=== PATIENT | female | born 1985 | race African-American/Black ===

== ENCOUNTER 2016-04-02 03:04 | Inpatient (IN) | payer OTHER ==
[~2016-04-02] VITALS: Ht 175.3 cm; Wt 85.9 kg
[2016-04-02 03:08] VITALS: BP 117/75; PULSE 100; RESP 18; TEMP 97.7; O2SAT 98
--- NOTE | 2016-04-02 03:12 | PD ---
HPI Chief Complaint: psychiatric evaluation Time Seen by Provider: 03:10 Travel History International Travel<30 days: No Contact w/Intl Traveler<30days: No History of Present Illness HPI Patient comes in under a [place] act by police. Patient states that she smoked flakka along with marijuana and drank bottle of absolute. Patient states the police took the rest of her marijuana and she is requesting something to eat. Patient denies any medical complaints or concerns at this time. Denies any chest pain, shortness of breath, abdominal pain, fevers, or headaches. Patient states she just wanting to sleep right now and then she will talk more. PFSH Past Medical History Blood Disorders: No Cancer: No Cardiovascular Problems: No Diminished Hearing: No Endocrine: No Genitourinary: No Immune Disorder: No Musculoskeletal: No Neurologic: No Psychiatric: No Reproductive: No Respiratory: No Immunizations Current: Yes Past Surgical History Other Surgery: No Social History Alcohol Use: Yes Tobacco Use: Yes Substance Use: Yes Allergies-Medications (Allergen,Severity, Reaction): Coded Allergies: No Known Allergies (Verified , 04/02/16) Reported Meds & Prescriptions Reported Meds & Active Scripts Active No Active Prescriptions or Reported Medications Review of Systems Except as stated in HPI: all other systems reviewed are Neg Physical Exam Narrative GENERAL: Well-developed, overly nourished, in no acute distress, and non-ill appearing. SKIN: Warm and dry. HEAD: Atraumatic. Normocephalic. EYES: Pupils equal and round. EOMI. No scleral icterus. No injection or drainage. ENT: No nasal bleeding or discharge. Mucous membranes pink and moist. NECK: Trachea midline. Supple. No nuclear rigidity. CARDIOVASCULAR: Regular rate and rhythm. No murmur appreciated. RESPIRATORY: No accessory muscle use. No respiratory distress. Clear to auscultation. Breath sounds equal bilaterally. MUSCULOSKELETAL: No obvious deformities. No clubbing. No cyanosis. No edema. Full range of motion. NEUROLOGICAL: Awake and alert. No obvious cranial nerve deficits. Motor grossly within normal limits. Normal speech. Data Data Last Documented VS Vital Signs Date Time Temp Pulse Resp B/P Pulse Ox O2 Delivery O2 Flow Rate FiO2 04/02/16 03:08 97.7 100 18 117/75 98 Orders Complete Blood Count With Diff (04/02/16 03:10) Comprehensive Metabolic Panel (04/02/16 03:10) Drug Screen, Random Urine (04/02/16 03:10) Ed Urine Pregnancytest Poc (04/02/16 03:10) Alcohol (Ethanol) (04/02/16 03:10) Salicylates (Aspirin) (04/02/16 03:10) Tylenol (Acetaminophen) (04/02/16 03:10) Psych Screen (04/02/16 03:10) Haloperidol Inj (Haldol Inj) (04/02/16 03:15) Lorazepam Inj (Ativan Inj) (04/02/16 03:15) Diphenhydramine Inj (Benadryl Inj) (04/02/16 03:15) Restraints Violent (04/02/16 03:17) Labs Laboratory Tests Test 04/02/16 03:25 White Blood Count 12.0 TH/MM3 Red Blood Count 4.10 MIL/MM3 Hemoglobin 10.5 GM/DL Hematocrit 33.7 % Mean Corpuscular Volume 82.1 FL Mean Corpuscular Hemoglobin 25.5 PG Mean Corpuscular Hemoglobin 31.1 % Concent Red Cell Distribution Width 19.3 % Platelet Count 310 TH/MM3 Mean Platelet Volume 10.2 FL Neutrophils (%) (Auto) 47.1 % Lymphocytes (%) (Auto) 39.4 % Monocytes (%) (Auto) 11.0 % Eosinophils (%) (Auto) 1.8 % Basophils (%) (Auto) 0.7 % Neutrophils # (Auto) 5.7 TH/MM3 Lymphocytes # (Auto) 4.7 TH/MM3 Monocytes # (Auto) 1.3 TH/MM3 Eosinophils # (Auto) 0.2 TH/MM3 Basophils # (Auto) 0.1 TH/MM3 CBC Comment DIFF FINAL Differential Comment Sodium Level 139 MEQ/L Potassium Level 3.6 MEQ/L Chloride Level 107 MEQ/L Carbon Dioxide Level 17.5 MEQ/L Anion Gap 15 MEQ/L Blood Urea Nitrogen 20 MG/DL Creatinine 1.30 MG/DL Estimat Glomerular Filtration 59 ML/MIN Rate Random Glucose 94 MG/DL Calcium Level 9.1 MG/DL Total Bilirubin 0.8 MG/DL Aspartate Amino Transf 26 U/L (AST/SGOT) Alanine Aminotransferase 21 U/L (ALT/SGPT) Alkaline Phosphatase 79 U/L Total Protein 8.0 GM/DL Albumin 3.8 GM/DL Salicylates Level LESS THAN 1.7 MG/DL Acetaminophen Level LESS THAN 2.0 MCG/ML Ethyl Alcohol Level LESS THAN 3 MG/DL MDM Medical Decision Making Medical Screen Exam Complete: Yes Emergency Medical Condition: Yes Differential Diagnosis Substance abuse, electrolyte abnormality, alcohol intoxication, other Narrative Course After initial evaluation of the patient. Patient was noted be in the hallway yelling and cursing at staff, spitting on staff, and trying to kick staff. Patient was restrained for safety of staff and the patient herself. Patient was seen and examined. Labs were obtained and reviewed with the exception of urine drug screen. Patient medically cleared for further treatment and evaluation by psych. Final disposition per psych. Diagnosis Primary Impression: Substance abuse Scripts No Active Prescriptions or Reported Meds Condition: Paul Sheehan Apr 02, 2016 03:12
[2016-04-02] MEDS ORDERED: HALOPERIDOL LACTATE 5 MG/ML AMP IM ONE (03:15)
[2016-04-02] MEDS ORDERED: diphenhydrAMINE HCL 50 MG/ML VIAL IM ONE (03:15)
[2016-04-02] MEDS ORDERED: LORazepam 2 MG/ML VIAL IM ONE (03:15)
[2016-04-02 03:44] LABS: AUTOMATED NEUTROPHIL # 5.7 TH/MM3 (1.8-7.7); BASOPHIL # 0.1 TH/MM3 (0-0.2); BASOPHIL % 0.7 % (0.0-2.0); EOSINOPHIL # 0.2 TH/MM3 (0-0.4); EOSINOPHIL % 1.8 % (0.0-4.0); HEMATOCRIT 33.7 % (35.0-46.0); HEMO FLAGS DIFF FINAL; LYMPH % 39.4 % (9.0-44.0); LYMPHOCYTE # 4.7 TH/MM3 (1.0-4.8); MEAN CELL VOLUME 82.1 FL (80.0-100.0); MEAN CORPUSCULAR HEMOGLOBIN 25.5 PG (27.0-34.0); MEAN CORPUSCULAR HGB CONC 31.1 % (32.0-36.0); NEUT % 47.1 % (16.0-70.0); PLATELET COUNT 310 TH/MM3 (150-450); RED CELL DISTRIBUTION WIDTH 19.3 % (11.6-17.2)
[2016-04-02 04:00] LABS: ALKALINE PHOSPHATASE 79 U/L (45-117); TOTAL BILIRUBIN ADULT 0.8 MG/DL (0.2-1.0)
[2016-04-02 04:03] LABS: ALT (GPT) 21 U/L (10-53); ANION GAP 15 MEQ/L (5-15); AST (GOT) 26 U/L (15-37); BICARBONATE 17.5 MEQ/L (21.0-32.0); BLOOD UREA NITROGEN 20 MG/DL (7-18); CHLORIDE 107 MEQ/L (98-107); GLOMERULAR FILTRATION RATE 59 ML/MIN (>89); POTASSIUM 3.6 MEQ/L (3.5-5.1); SODIUM (NA) 139 MEQ/L (136-145)
[2016-04-02 04:05] LABS: ACETAMINOPHEN LESS THAN 2.0 MCG/ML (10.0-30.0)
[2016-04-02 08:08] VITALS: BP 120/76; PULSE 88; RESP 16; O2SAT 100
[2016-04-02 11:17] LABS: AMPHETAMINE, URINE NEG (NEG); BARBITURATES, URINE NEG (NEG); COCAINE, URINE NEG (NEG)
[2016-04-02 11:35] VITALS: BP 109/71; PULSE 76; RESP 20; O2SAT 100
[2016-04-02 12:54] VITALS: BP 110/72; PULSE 90; RESP 18; TEMP 98.5; O2SAT 100
[2016-04-02 17:58] VITALS: BP 125/65; PULSE 77; RESP 18; O2SAT 97
[2016-04-02 22:23] VITALS: BP 129/67; PULSE 80; RESP 19; O2SAT 99
[2016-04-03 03:02] VITALS: BP 115/60; PULSE 88; RESP 18; TEMP 97.6; O2SAT 99
[2016-04-03 06:11] VITALS: BP 120/71; PULSE 91; RESP 17
[2016-04-03] MEDS: QUEtiapine FUMARATE 25 MG TAB PO SCH ×2 (09:06→21:23)
--- NOTE | 2016-04-03 09:09 | HHI.HP ---
Provisional Diagnosis Admission Date Apr 03, 2016 at 09:06 [place] I. 1. Polysubstance dependence with associated mood disorder [place] II. Deferred [place] V. GAF is 40 presently Certification of Person's Competence To Provide Express and Informed Consent I have personally examined Bettina Burks , a person being served at [facility] on, Apr 03, 2016 09:09. Express and informed consent means consent voluntarily given in writing, by a competent person, after sufficient explanation and disclosure of the subject matter involved to enable the person to make a knowing and willful decision without any element of force, fraud, deceit, duress, or other form of constraint or coercion. This person is 18 years of age or older, is not now known to be incompetent to consent to treatment with a guardian advocate, and does not have a health care surrogate or proxy currently making medical treatment decisions. I have found this person to be one of the following: [x] Competent to provide express and informed consent, as defined above, for voluntary admission to this facility and is competent to provide express and informed consent for treatment. He/she has the consistent capacity to make well reasoned, willful, and knowing decisions concerning his or her medical or mental health treatment. The person fully and consistently understands the purpose of the admission for examination/placement and is fully capable of personally exercising all rights assured [place] Incompetent to provide express and informed consent to voluntary admission, and this is incompetent to provide express and informed consent to treatment. The person must be transferred to involuntary status and a petition for a guardian advocate filed with the Circuit Court. [] Refusing to provide express and informed consent to voluntary admission but is competent to provide express and informed consent for treatment. The person must be discharged or transferred to involuntary status. Form shall be completed within 24 hours of a person's arrival at the receiving facility and filed in the clinical record of each person: 1. Admitted on a voluntary basis 2. Permitted to provide express and informed consent to his/her own treatment 3. Allowed to transfer from involuntary to voluntary status 4. Prior to permitting a person to consent to his or her own treatment after having been previously found incompetent to consent to treatment. History of Present Illness Capacity: Has Capacity HPI Ms. Burks is a 30-year-old female with a reported history of schizophrenia who presents on a [place] act by [place] [employer] alleging suicidal threats. Patient's toxicology was positive for cannabinoids on arrival here although the patient additionally admits to use of flakka and cocaine as well as alcohol. Reviewing the electronic medical record, I note that nurse practitioner Fan saw the patient exactly a week ago with a similar presentation and suspected malingering at that time. Patient seen and examined. Chart reviewed. Case discussed with nurse in the J- pod. On my examination today, the patient presents as dysphoric but not really depressed. She is an extremely vague historian. She says that she still feels "the same way" as she did when she was [place]ta acted. She says "I'm sick and tired of everything." She endorses vague ongoing suicidal ideation without specific plan or intent. No reported urge to hurt herself in the ED her on the inpatient psychiatric unit. She cannot generate any reason to live. She describes very vague auditory hallucinations and only when pressed will she say that they are command in nature and are saying "do it. Do it." She does not appear internally stimulated. She says that she has been sleeping and eating okay. She does appear to be experiencing some formication, possibly related to her recent substance use. The remainder of the psychiatric ROS is negative. Past psychiatric history: Patient reports prior diagnoses as noted above. She says that she follows with a mental health provider and Janina but cannot recall the name. She cannot recall whether she has a history of psychiatric admissions. She does say that she has previously tried to cut her wrists and also tried to hang herself in half-way. Family history: Patient reports that there is some family history of mental illness, although she cannot be specific. She also knows that her aunt and mother both have substance use issues. She cannot recall whether there is a history of suicide in the family. Chemical dependency history: Patient reports that she has been regularly using flakka and cannabis. Her use of cocaine as somewhat more sporadic, last a few days ago. She maintains that she drinks alcohol daily although her alcohol level on presentation here was negative. She does not report any history of DTs or seizures. Social history: Patient reports that she is without stable housing. She says that she could stay with her mother if she were clean and sober but she is not and so she cannot stay with her. She has a 5-month-old, 9-year-old and 11-year- old child, none of whom are in her custody. She reports a history of intermediate related to drug charges but denies any violent crime. She denies any history. She has a 10th grade education. She is single. Review of Systems ROS Limitations: Poor Historian Other Complains of some right thigh pain. She thinks that she may have left "a needle " in the thigh. Past Psych History Psychological trauma history No reported trauma history. Violence risk - others (6 mos) Low imminent risk Violence risk - self (6 mos) Indeterminate. Suspect lower imminent risk. Substance Abuse History Drugs/Alcohol past 12 months See above Past Family Social History Coded Allergies: No Known Allergies (Verified , 04/02/16) Past Medical History See electronic medical record. Patient denies any medical issues. Discontinued Reported Medications Penicillin V Potassium (Penicillin Vk)250 Mg [id number] Mg PO QID Ref 0 03/28/16 Menthol Lozenge (Cepacol Regular Strength Lozenge)3 Mg Lozg1 Lozenge PO Q3H PRN (SORE THROAT) #1 BOX Ref 0 03/28/16 Miscellaneous (No Current Meds) Misc 12/22/09 Discontinued Scripts Cepacol Maximu1 Lozg 1 Lozg Loz1 Lozg PO Q4HPRN #20 Prov:DANII ESPINALO. 06/29/11 Penicillin V Potassium (Pen Vk)500 Mg Sse155 Mg PO QID #40 Prov:DANII ESPINALOWayne 06/29/11 Family History See above Social History See above Patient's Strengths (min. 2) Maintaining basic hygiene. Verbally fluent. Physical Exam Physical examination completed in the ED by the ED provider. On my exam, patient is well-nourished and well-developed. She appears to be in no acute physical distress. No motoric abnormalities noted. No signs of withdrawal noted. Labs and vital signs reviewed. Vital Signs Vital Signs Date Time Temp Pulse Resp B/P Pulse Ox O2 Delivery O2 Flow Rate FiO2 04/03/16 06:11 91 17 120/71 Room Air 04/03/16 03:02 97.6 99 Lab Results Item Value Date Time White Blood Count 12.0 TH/MM3 H 1/2/17 0325 Hemoglobin 10.5 GM/DL L 04/02/16 0325 Platelet Count 310 TH/MM3 04/02/16 0325 Sodium Level 139 MEQ/L 04/02/16 0325 Potassium Level 3.6 MEQ/L 04/02/16 0325 Chloride Level 107 MEQ/L 04/02/16 0325 Carbon Dioxide Level 17.5 MEQ/L L 04/02/16 0325 Blood Urea Nitrogen 20 MG/DL H 04/02/16 0325 Creatinine 1.30 MG/DL H 04/02/16 0325 Aspartate Amino Transf (AST/SGOT) 26 U/L 04/02/16 0325 Alkaline Phosphatase 79 U/L 04/02/16 0325 Alanine Aminotransferase (ALT/SGPT) 21 U/L 04/02/16 0325 Urine Cannabinoids Screen POS H 04/02/16 1050 Ethyl Alcohol Level LESS THAN 3 MG/DL 04/02/16 0325 Emergency Department [id number] test was negative. Mental Status Examination Patient is in hospital gown. She is somewhat disheveled but maintaining basic hygiene. She is awake and alert and oriented 3. No abnormal motor movements noted. Speech is within normal limits for rate, tone and volume. Language and fund of knowledge seem adequate and appropriate for age. Mood is dysphoric but not really depressed and affect is restricted and consistent with stated mood. Thought process linear. No loosening of associations. No evident delusions. Reports vague auditory hallucinations as detailed above, possibly command. No visual hallucinations or other hallucinatory material. Reports ongoing vague suicidal ideation without specific plan or intent. No reported urge to hurt herself on the inpatient psychiatric unit. No homicidal ideation. Insight and judgment are fair. Assessment & Plan Problem List: (1) Other psychoactive substance dependence with psychoactive substance-induced mood disorder ICD Code: F19.24 Assessment & Plan This is a 30-year-old female with psychiatric history as detailed above who presents under a [place] act alleging that she was threatening to injure herself. Patient had a similar presentation about a week ago and was felt to be malingering. On my examination today, patient presents as a very vague historian. She does endorse some ongoing suicidal ideation. I suspect that the patient is exaggerating if not outright malingering her symptoms, likely with the same motivation is last time, but it is possible that she is also experiencing a drug-induced mood disorder given her comorbid substance use issues. I will plan to admit the patient briefly to the inpatient psychiatric unit for safety, observation and stabilization if necessary. --Admit inpatient --Voluntary status --Consult the hospitalist for patient's complaints of thigh pain. Patient also has decreased GFR and leukocytosis. Check a UA and recheck basic labs in the am. --Start Seroquel 25mg BID for mood d/o --CIWA with Ativan for withdrawal --Hydroxyzine for anxiety. Cogentin as needed for EPS. Benadryl as needed for sleep. --Vitals every shift --Counselor to see --Disposition planning --Estimated length of stay: 3-5 days Discharge Planning Pending outcome of observation Request HC Surrog/Guard Advoc?: No Aayush Vo MD Apr 03, 2016 09:09
[2016-04-03] MEDS ORDERED: hydrOXYzine HCL 50 MG TAB PO PRN (09:15)
[2016-04-03] MEDS ORDERED: MAGNESIUM HYDROXIDE SUSP 30 ML CUP PO PRN (09:15)
[2016-04-03] MEDS ORDERED: LORazepam 2 MG TAB PO PRN (09:15)
[2016-04-03] MEDS ORDERED: LORazepam 2 MG/ML VIAL IM PRN ×4 (09:15)
[2016-04-03] MEDS ORDERED: FLUMAZENIL 1 MG/10 ML VIAL IV PUSH PRN (09:15)
[2016-04-03] MEDS ORDERED: ACETAMINOPHEN 325 MG TAB PO PRN (09:15)
[2016-04-03] MEDS ORDERED: LORazepam 1 MG TAB PO PRN (09:15)
[2016-04-03] MEDS ORDERED: diphenhydrAMINE HCL 50 MG CAP PO PRN (09:15)
[2016-04-03] MEDS ORDERED: BENZTROPINE MESYLATE 2 MG/2 ML VIAL IM PRN (09:15)
[2016-04-03] MEDS ORDERED: BENZTROPINE MESYLATE 1 MG TAB PO PRN (09:15)
[2016-04-03] MEDS ORDERED: ALUMINUM/MAGNESIUM/SIMETH 30 ML CUP PO PRN (09:15)
[2016-04-03 10:35] VITALS: BP 120/71
[2016-04-03 10:50] VITALS: BP 102/78; PULSE 84; RESP 18; TEMP 97.8; O2SAT 97
--- NOTE | 2016-04-03 16:55 | PD.CONS ---
[facility]ry [facility] Primary Care Physician No Primary Care Physician Diagnoses: (1) Substance abuse (2) Substance-induced psychotic disorder with hallucinations History of Present Illness Patient is a 30-year-old AF female who came in under [place] act by police. Patient stating she smoked Flacka, along with marijuana and drank a bottle of absolute. She is now admitted to inpatient psychiatry unit for further evaluation. Consulted for medical management of right thigh pain, leukocytosis , GEO. Patient seen today. States that she is having pain on the right hip area secondary to 3 injection shots that she received in the ED because she was not behaving well. She also complained of brownish greenish vaginal discharge, strong odor, itching, also burning sensation when she urinates. Denies fevers, chills, nausea, vomiting, diarrhea, chest pain, palpitations, headaches, dizziness. Review of Systems Constitutional: DENIES: Fever, Chills, Change in appetite Endocrine: DENIES: Heat/cold intolerance Eyes: DENIES: Blurred vision, Eye pain Ears, nose, mouth, throat: DENIES: Nasal discharge Respiratory: DENIES: Cough, Hemoptysis, Sputum production, Shortness of breath Cardiovascular: DENIES: Chest pain, Palpitations, Dyspnea on Exertion, Lower Extremity Edema Gastrointestinal: DENIES: Abdominal pain, Constipation, Diarrhea, Nausea, Vomiting Genitourinary: COMPLAINS OF: Urgency, Dysuria, Vaginal discharge, DENIES: Urinary frequency Musculoskeletal: DENIES: Joint pain Integumentary: DENIES: Abnormal pigmentation Neurologic: DENIES: Abnormal gait, Poor Balance Past Family Social History Allergies: Coded Allergies: No Known Allergies (Verified , 04/02/16) Past Medical History No known medical history Past Surgical History 1, 6 months ago Reported Medications No report medications Active Ordered Medications Current Medications Medications (Trade) Dose Ordered Sig/Ren Route Start Time Stop Time Status Last Admin (Benadryl) 50 mg HS PRN PO 04/03/16 09:15 (Tylenol) 650 mg Q4H PRN PO 04/03/16 09:15 (Milk Of Magnesia Liq) 30 ml DAILY PRN PO 04/03/16 09:15 (Mag-Al Plus Susp Liq) 30 ml Q6H PRN PO 04/03/16 09:15 (Habitrol 21 Mg Patch.24 Hr) 1 patch DAILY T-DERMAL 04/04/16 09:00 (Atarax) 50 mg Q6H PRN PO 04/03/16 09:15 (Cogentin) 1 mg Q12H PRN PO 04/03/16 09:15 (Cogentin Inj) 1 mg Q12H PRN IM 04/03/16 09:15 (Ativan) 1 mg Q4H PRN PO 04/03/16 09:15 (Ativan Inj) 1 mg Q4H PRN IM 04/03/16 09:15 (Ativan) 2 mg Q2H PRN PO 04/03/16 09:15 (Ativan Inj) 2 mg Q2H PRN IM 04/03/16 09:15 (Ativan Inj) 2 mg Q1H PRN IM 04/03/16 09:15 (Ativan Inj) 2 mg Q15M PRN IM 04/03/16 09:15 Miscellaneous Information 1 DAILY T-DERMAL 04/04/16 09:00 (SEROquel) 25 mg BID PO 04/03/16 09:06 Family History Father side of the family diabetes Social History Current smoker half a pack a day Daily alcohol use tequila Illicit drug use includes marijuana Physical Exam Vital Signs Vital Signs Date Time Temp Pulse Resp B/P Pulse Ox O2 Delivery O2 Flow Rate FiO2 04/03/16 10:50 97.8 84 18 102/78 97 04/03/16 10:35 120/71 04/03/16 06:11 91 17 120/71 Room Air 04/03/16 03:02 97.6 88 18 115/60 99 Room Air 04/02/16 22:23 80 19 129/67 99 Room Air 04/02/16 17:58 77 18 125/65 97 Room Air Physical Exam GENERAL: This is a well-nourished, well-developed patient, in no apparent distress. SKIN: No rashes, ecchymoses or lesions. Cool and dry. HEAD: Atraumatic. Normocephalic. No temporal or scalp tenderness. EYES: Pupils equal round and reactive. Extraocular motions intact. No scleral icterus. No injection or drainage. ENT: Nose without bleeding. Throat without erythema. Uvula midline. Airway patent. NECK: Trachea midline. No JVD or lymphadenopathy. Supple, nontender, no meningeal signs. CARDIOVASCULAR: Regular rate and rhythm without murmurs, gallops, or rubs. RESPIRATORY: Clear to auscultation. Breath sounds equal bilaterally. No wheezes , rales, or rhonchi. GASTROINTESTINAL: Abdomen soft, non-tender, nondistended. No CVA tenderness. I 'll sounds active 4 MUSCULOSKELETAL: Extremities without clubbing, cyanosis, or edema. No joint tenderness, effusion, or edema noted. NEUROLOGICAL: Awake and alert. Cranial nerves II through XII intact. Motor and sensory grossly within normal limits. Five out of 5 muscle strength in all muscle groups. Normal speech. Result Diagram: 04/02/1632404/02/16324 Assessment and Plan Problem List: (1) Substance abuse ICD Code: F19.10 Status: Acute (2) UTI symptoms ICD Code: R39.9 Status: Acute (3) Acute kidney injury ICD Code: N17.9 Status: Acute (4) Vagina itching ICD Code: L29.8 Status: Acute (5) Leukocytosis ICD Code: D72.829 Status: Acute Assessment and Plan Patient is a 30-year-old AF female who came in under [place] act by police. Patient stating she smoked Flock, along with marijuana and drank a bottle of absolute. She is now admitted to inpatient psychiatry unit for further evaluation. Consulted for medical management. Substance abuse and mood disorder - managed by psychiatric team Right thigh pain - ice on and off for now. Pain secondary to injections of Haldol, Benadryl, Ativan in the ED. Treatment discussed with patient. Monitor. Leukocytosis, UTI symptoms, vaginal itching/ discharge- UA to be collected. - Monistat intravaginally - Repeat CBC Acute kidney injury - BUN 20/ creatinine 1.30. Baseline creatinine around 0.67 to 0.72 - Avoid nephrotoxins - Encourage by mouth fluid intake - Monitor BMP Tobacco use - counseled. Declines nicotine patch use Alcohol use - counseled. Thank you for this consultation. We will follow patient with you. Written by July Sanchez, acting as scribe for Dr. Joe on 04/03/16 at 16: 05. The documentation accurately reflects the work performed [id number] by me on 04/03/16 at 16:05. Code Status Full code Discussed Condition With Patient, nursing July Khan Apr 03, 2016 16:55 Ricky Joe MD Apr 03, 2016 17:19
[2016-04-03 18:00] VITALS: BP 120/68; PULSE 89; RESP 18; TEMP 97.8; O2SAT 97
[2016-04-03] MEDS ORDERED: MICONAZOLE NITRATE 200 MG VAG SUPP VAGINAL SCH (21:00)
[2016-04-04 05:51] VITALS: BP 123/74; PULSE 80; RESP 18; TEMP 98.5; O2SAT 100
[2016-04-04 07:37] LABS: AUTOMATED NEUTROPHIL # 1.4 TH/MM3 (1.8-7.7); BASOPHIL % 0.7 % (0.0-2.0); EOSINOPHIL # 0.3 TH/MM3 (0-0.4); EOSINOPHIL % 5.4 % (0.0-4.0); HEMATOCRIT 31.9 % (35.0-46.0); HEMO FLAGS DIFF FINAL; LYMPH % 56.5 % (9.0-44.0); LYMPHOCYTE # 3.1 TH/MM3 (1.0-4.8); MEAN CORPUSCULAR HEMOGLOBIN 26.4 PG (27.0-34.0); MEAN CORPUSCULAR HGB CONC 32.1 % (32.0-36.0); MONO % 11.7 % (0.0-8.0); NEUT % 25.7 % (16.0-70.0); PLATELET COUNT 256 TH/MM3 (150-450); RED BLOOD COUNT 3.89 MIL/MM3 (4.00-5.30); WHITE BLOOD COUNT 5.5 TH/MM3 (4.0-11.0)
[2016-04-04 07:55] LABS: ALT (GPT) 20 U/L (10-53); ANION GAP 8 MEQ/L (5-15); AST (GOT) 18 U/L (15-37); BICARBONATE 24.8 MEQ/L (21.0-32.0); BLOOD UREA NITROGEN 10 MG/DL (7-18); CHLORIDE 108 MEQ/L (98-107); GLOMERULAR FILTRATION RATE 119 ML/MIN (>89); POTASSIUM 3.7 MEQ/L (3.5-5.1); SODIUM (NA) 141 MEQ/L (136-145)
[2016-04-04 08:05] LABS: ALKALINE PHOSPHATASE 79 U/L (45-117); HDL CHOLESTEROL 74.3 MG/DL (40.0-60.0); LDL CHOLESTEROL 49 MG/DL (0-99); TOTAL BILIRUBIN ADULT 0.3 MG/DL (0.2-1.0)
[2016-04-04] MEDS ORDERED: NICOTINE 21 MG/24 HR PATCH T-DERMAL SCH (09:00)
[2016-04-04] MEDS ORDERED: REMOVE OLD PATCH T-DERMAL SCH (09:00)
[2016-04-04] MEDS: QUEtiapine FUMARATE 25 MG TAB PO SCH (09:15)
[2016-04-04] MEDS ORDERED: QUET1TAB7 PO (11:51)
--- NOTE | 2016-04-04 11:51 | HHI.DS ---
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 Burks is a 30-year-old female with a reported history of schizophrenia who presents on a Peralta act by [place] [employer] alleging suicidal threats. Patient's toxicology was positive for cannabinoids on arrival here although the patient additionally admits to use of flakka and cocaine as well as alcohol. Reviewing the electronic medical record, I note that nurse practitioner Fan saw the patient exactly a week ago with a similar presentation and suspected malingering at that time. Patient seen and examined. Chart reviewed. Case discussed with nurse in the J- pod. On my examination today, the patient presents as dysphoric but not really depressed. She is an extremely vague historian. She says that she still feels "the same way" as she did when she was Peralta acted. She says "I'm sick and tired of everything." She endorses vague ongoing suicidal ideation without specific plan or intent. No reported urge to hurt herself in the ED her on the inpatient psychiatric unit. She cannot generate any reason to live. She describes very vague auditory hallucinations and only when pressed will she say that they are command in nature and are saying "do it. Do it." She does not appear internally stimulated. She says that she has been sleeping and eating okay. She does appear to be experiencing some formication, possibly related to her recent substance use. The remainder of the psychiatric ROS is negative. Past psychiatric history: Patient reports prior diagnoses as noted above. She says that she follows with a mental health provider and Janina but cannot recall the name. She cannot recall whether she has a history of psychiatric admissions. She does say that she has previously tried to cut her wrists and also tried to hang herself in assisted. Family history: Patient reports that there is some family history of mental illness, although she cannot be specific. She also knows that her aunt and mother both have substance use issues. She cannot recall whether there is a history of suicide in the family. Chemical dependency history: Patient reports that she has been regularly using flakka and cannabis. Her use of cocaine as somewhat more sporadic, last a few days ago. She maintains that she drinks alcohol daily although her alcohol level on presentation here was negative. She does not report any history of DTs or seizures. Social history: Patient reports that she is without stable housing. She says that she could stay with her mother if she were clean and sober but she is not and so she cannot stay with her. She has a 5-month-old, 9-year-old and 11-year- old child, none of whom are in her custody. She reports a history of mcc related to drug charges but denies any violent crime. She denies any history. She has a 10th grade education. She is single. Tobacco Use In Past 30 Days: Refused To Answer Alcohol Use: 4 or More Times Per Week Hospital Course Patient was admitted to a locked, inpatient psychiatric unit. Appropriate precautions were in place throughout patient's hospital stay. Patient was seen and examined daily on the unit by psychiatry and also visited by counselor. Medications were adjusted. Patient tolerated medications well without side effects. There was no evidence of any suicidality or homicidality on the inpatient unit. Patient was noted to be quite difficult and demanding by nursing staff. For example, she rang the panic button in her room to get one of the techs to bring her a snack in bed. She is raising a great hue and cry because she didn't get the lunch that she wanted. On my examination today, the patient denies any SI, HI or AVH. She reports she slept somewhat better last night with Seroquel. She denies any side effects from medications. No physical complaints. Patient is fairly clearly malingering at this point with secondary gain of obtaining prison but I do rechecker that she is at low imminent risk of harm towards self or others from a mental illness after weighing the acute, chronic, and protective factors. Patient is at chronic risk related to her substance use, but she is unfortunately pre-contemplative with regards to changing her pattern of use. She has maximized benefit from this inpatient psychiatric hospital stay will be discharged today. Psychiatric follow-up as per counselor. Patient also to follow-up with primary care. Results Blood Pressure 123 / 74 Vital Signs Date Time Temp Pulse Resp B/P Pulse Ox O2 Delivery O2 Flow Rate FiO2 04/04/16 05:51 98.5 80 18 123/74 100 04/03/16 06:11 Room Air Laboratory Tests Test 04/02/16 04/02/16 04/04/16 03:25 10:50 06:54 White Blood Count 12.0 TH/MM3 (4.0-11.0) Hemoglobin 10.5 GM/DL 10.2 GM/DL (11.6-15.3) (11.6-15.3) Hematocrit 33.7 % 31.9 % (35.0-46.0) (35.0-46.0) Mean Corpuscular Hemoglobin 25.5 PG 26.4 PG (27.0-34.0) (27.0-34.0) Mean Corpuscular Hemoglobin 31.1 % Concent (32.0-36.0) Red Cell Distribution Width 19.3 % 19.0 % (11.6-17.2) (11.6-17.2) Monocytes (%) (Auto) 11.0 % 11.7 % (0.0-8.0) (0.0-8.0) Monocytes # (Auto) 1.3 TH/MM3 (0-0.9) Carbon Dioxide Level 17.5 MEQ/L (21.0-32.0) Blood Urea Nitrogen 20 MG/DL (7-18) Creatinine 1.30 MG/DL (0.50-1.00) Estimat Glomerular Filtration 59 ML/MIN (>89) Rate Salicylates Level LESS THAN 1.7 MG/DL (2.8-20.0) Acetaminophen Level LESS THAN 2.0 MCG/ML (10.0-30.0) Urine Cannabinoids Screen POS (NEG) Red Blood Count 3.89 MIL/MM3 (4.00-5.30) Lymphocytes (%) (Auto) 56.5 % (9.0-44.0) Eosinophils (%) (Auto) 5.4 % (0.0-4.0) Neutrophils # (Auto) 1.4 TH/MM3 (1.8-7.7) Chloride Level 108 MEQ/L (98-107) Albumin 3.2 GM/DL (3.4-5.0) HDL Cholesterol 74.3 MG/DL (40.0-60.0) Laboratory Results Test 1/4/17 06:54 Triglycerides Level 82 MG/DL (42-150) Cholesterol Level 140 MG/DL (120-200) LDL Cholesterol 49 MG/DL (0-99) HDL Cholesterol 74.3 MG/DL (40.0-60.0) Summary of Procedures None done Imaging None done Pending results at discharge: Yes Medications # of Antipsychotic meds at D/C: 1 Approp Antipsych med options 1 - Minimum of three failed multiple trials of monotherapy. 2 - Documented plan to taper to monotherapy due to previous use of multiple meds OR cross-taper in progress at D/C. 3 - Documentation of augmentation of Clozapine. 4 - Justification other than those listed in allowable values 1-3, document here : Discharge Discharge Date: Apr 04, 2016 Discharge Diagnosis: (1) Malingering Diagnosis: Principal ICD Code: Z76.5 (2) Polysubstance dependence Diagnosis: Secondary ICD Code: F19.20 Mental Status Exam at Disch Patient is in hospital gown. She is fairly well groomed. She is attending to basic hygiene. She is awake and alert and oriented 3. No abnormal motor movements noted. No signs of withdrawal noted. Speech is within normal limits for rate, tone and volume. Language and fund of knowledge seem adequate and appropriate for age. Mood is somewhat improved and affect is blunted. Thought process linear. No loosening of associations. No evident delusions. Denies audiovisual hallucinations. Denies suicidal or homicidal ideation. Insight and judgment are fair with respect to personal safety but likely poor with respect to substance use issues. 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 Aayush Vo at Smoking is Dangerous to Your Health. Avoid second hand smoking Aayush Vo MD Apr 04, 2016 11:51
[2016-04-04 16:30] LABS: HEMOGLOBIN A1a 1.2 %; HEMOGLOBIN A1b 0.7 %; HEMOGLOBIN Ao 86.2 %; HEMOGLOBIN F 0.8 %; HEMOGLOBIN LA1C 1.8 %; HEMOGLOBIN P3 3.4 %
== END 2016-04-04 13:21 | disposition home or self-care (01) | DRG 897 ==
LOC: NEPA 03:04 → NEDA 04-03 09:06 → H270 04-03 10:56
PROVIDERS: ADMIT Psychiatry & Neurology Psychiatry; ATTEND Psychiatry & Neurology Psychiatry
DX: F19.24 Other psychoactive substance dependence with psychoactive substance-induced mood disorder (principal); F10.10 Alcohol abuse, uncomplicated; N17.9 Acute kidney failure, unspecified; R45.851 Suicidal ideations; N39.0 Urinary tract infection, site not specified; M79.651 Pain in right thigh; D72.829 Elevated white blood cell count, unspecified; F20.9 Schizophrenia, unspecified; F41.9 Anxiety disorder, unspecified; F17.210 Nicotine dependence, cigarettes, uncomplicated; Y90.0 Blood alcohol level of less than 20 mg/100 ml; Z59.0 Homelessness; Z76.5 Malingerer [conscious simulation]; Z81.8 Family history of other mental and behavioral disorders
CPT/HCPCS: 80053; 80061; 80307; 80320; 80329; 83036; 84443; 84703; 85025; 86703; 96372; G0480; J1200; J1630; J2060

== ENCOUNTER 2016-04-06 18:14 | Emergency (ER) | payer MEDICAID, OTHER ==
[~2016-04-06] VITALS: Ht 172.7 cm; Wt 90.0 kg
[~2016-04-06 18:14] MED LIST: QUET1TAB7 PO
[2016-04-06] MEDS ORDERED: SODIUM CHLOR 0.9% 1000 ML INJ 1,000 ML IV ONE (18:30)
[2016-04-06] MEDS ORDERED: SODIUM CHLORIDE 0.9% FLUSH 5 ML FLUSH IVF PRN (18:30)
[2016-04-06] MEDS ORDERED: LORazepam 2 MG/ML VIAL IVP ONE (18:30)
[2016-04-06 18:32] VITALS: BP 117/78; PULSE 73; RESP 20; TEMP 96.9; O2SAT 99
--- NOTE | 2016-04-06 18:35 | PD ---
HPI Chief Complaint: Psychiatric Symptoms Time Seen by Provider: 18:30 Travel History International Travel<30 days: No Contact w/Intl Traveler<30days: No Traveled to known affect area: No History of Present Illness HPI The patient is a 30-year-old after Spanish female who presents to the emergency department via police and EMS as a Peralta act. The patient apparently took cocaine, Flacka, and tequila earlier tonight in an attempt to kill herself. The patient states she has a history of multiple psychiatric disorders including depression, bipolar affective disorder, and schizoaffective disorder. The patient states she was supposed to take Remeron and other medications, however, does not take her medications. The patient states that she is "tired of this life and I want to move onto the next life." The patient complains of a headache, chest pain, and abdominal pain after taking the cocaine and Flacka. The patient does note suicide ideation, but denies any homicidal ideation. She denies any hallucinations or delusions. PFSH Past Medical History Cancer: No (per pt. ) Cardiovascular Problems: No (per pt. ) Diabetes: No (per pt. ) Diminished Hearing: No Endocrine: No Genitourinary: No Headaches: No (per pt.) Immune Disorder: No Musculoskeletal: No Neurologic: No Psychiatric: No (per pt.) Reproductive: No Respiratory: No Immunizations Current: Yes Seizures: No (per pt.) Social History Alcohol Use: Yes Tobacco Use: Yes Substance Use: Yes Allergies-Medications (Allergen,Severity, Reaction): Coded Allergies: No Known Allergies (Verified , 04/02/16) Reported Meds & Prescriptions Reported Meds & Active Scripts Active Quetiapine (Quetiapine Fumarate) 25 Mg Tab 25 Mg PO BID 5 Days Review of Systems Except as stated in HPI: all other systems reviewed are Neg General / Constitutional: No: Fever Eyes: No: Blurred Vision HENT: Positive: Headaches, No: Neck Pain Cardiovascular: Positive: Chest Pain or Discomfort Respiratory: No: Shortness of Breath Gastrointestinal: Positive: Abdominal Pain, No: Nausea, Vomiting Genitourinary: No: Dysuria Musculoskeletal: No: Myalgias, Weakness Neurologic: Positive: Headache, No: Change in Mentation Psychiatric: Positive: Depression, Suicidal Ideations, Disorder of Thought, Mood Disorder, Substance Abuse Physical Exam Narrative GENERAL: Awake, alert, 30-year-old female who appears her stated age and is in no acute respiratory distress. SKIN: Warm and dry. HEAD: Atraumatic. Normocephalic. EYES: Pupils equal and round. 4 mm bilateral and reactive. ENT: No nasal bleeding or discharge. Mucous membranes pink and moist. NECK: Trachea midline. No JVD. CARDIOVASCULAR: Regular rate and rhythm. No murmur appreciated. Heart rate in the 80s. RESPIRATORY: No accessory muscle use. Clear to auscultation. Breath sounds equal bilaterally. GASTROINTESTINAL: Abdomen soft, non-tender, nondistended. No rebound tenderness , guarding, or rigidity. MUSCULOSKELETAL: No obvious deformities. No clubbing. No cyanosis. No edema. NEUROLOGICAL: Awake and alert. No obvious cranial nerve deficits. Motor grossly within normal limits. Normal speech. PSYCHIATRIC: Patient is somewhat angry in conversation, patient is mad that she is in the emergency department as a Peralta act after intentionally taking the medications and drugs. Data Data Last Documented VS Vital Signs Date Time Temp Pulse Resp B/P Pulse Ox O2 Delivery O2 Flow Rate FiO2 04/06/16 18:32 96.9 73 20 117/78 99 Orders Electrocardiogram (04/06/16 18:30) Alcohol (Ethanol) (04/06/16 18:30) Complete Blood Count With Diff (04/06/16 18:30) Comprehensive Metabolic Panel (04/06/16 18:30) Drug Screen, Random Urine (04/06/16 18:30) Salicylates (Aspirin) (04/06/16 18:30) Tylenol (Acetaminophen) (04/06/16 18:30) Urinalysis - C+S If Indicated (04/06/16 18:30) Ua Includes Microscopic (04/06/16 18:30) Iv Access Insert/Monitor (04/06/16 18:30) Ecg Monitoring (04/06/16 18:30) Oximetry (04/06/16 18:30) Lorazepam Inj (Ativan Inj) (04/06/16 18:30) Sodium Chloride 0.9% Flush (Ns Flush) (04/06/16 18:30) Sodium Chlor 0.9% 1000 Ml Inj (Ns 1000 M (04/06/16 18:30) Creatine Kinase (Cpk) (04/06/16 18:30) Troponin I (04/06/16 18:30) Ed Urine Pregnancytest Poc (04/06/16 18:35) [facility] Medical Decision Making Medical Screen Exam Complete: Yes Emergency Medical Condition: Yes Medical Record Reviewed: Yes Differential Diagnosis Differential diagnosis includes polysubstance abuse, substance induced mood disorder, rhabdomyolysis, acute renal failure, dehydration Narrative Course IV was established, labs were drawn and sent, and the patient was placed on monitoring. However, the patient ripped out her IV. EKG was ordered and interpreted. Ativan 1 mg intravenously was ordered as the patient took sympathomimetics is and is having chest pain. However, patient tore out her IV and refused lab work. Patient refused a urinalysis stated that she did not want to be "raped "to get her urine. The patient is oriented, is somewhat aggressive toward staff. The patient will be taken to J pod. Disposition as per psych. 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
[2016-04-06 19:35] VITALS: BP 142/75; PULSE 77; RESP 18; TEMP 97.4; O2SAT 97
[2016-04-06] MEDS ORDERED: HALOPERIDOL LACTATE 5 MG/ML AMP IM ONE (21:45)
[2016-04-06] MEDS ORDERED: LORazepam 2 MG/ML VIAL IM ONE (21:45)
[2016-04-06] MEDS ORDERED: ACETAMINOPHEN 325 MG TAB PO ONE (21:45)
--- NOTE | 2016-04-06 22:31 | PD ---
Physical Exam Time Seen by Provider: 22:26 Data Data Last Documented VS Vital Signs Date Time Temp Pulse Resp B/P Pulse Ox O2 Delivery O2 Flow Rate FiO2 04/06/16 19:35 97.4 77 18 142/75 97 Room Air Orders Electrocardiogram (04/06/16 18:30) Alcohol (Ethanol) (04/06/16 18:30) Complete Blood Count With Diff (04/06/16 18:30) Comprehensive Metabolic Panel (04/06/16 18:30) Drug Screen, Random Urine (04/06/16 18:30) Salicylates (Aspirin) (04/06/16 18:30) Tylenol (Acetaminophen) (04/06/16 18:30) Urinalysis - C+S If Indicated (04/06/16 18:30) Ua Includes Microscopic (04/06/16 18:30) Iv Access Insert/Monitor (04/06/16 18:30) Ecg Monitoring (04/06/16 18:30) Oximetry (04/06/16 18:30) Lorazepam Inj (Ativan Inj) (04/06/16 18:30) Sodium Chloride 0.9% Flush (Ns Flush) (04/06/16 18:30) Sodium Chlor 0.9% 1000 Ml Inj (Ns 1000 M (04/06/16 18:30) Creatine Kinase (Cpk) (04/06/16 18:30) Troponin I (04/06/16 18:30) Ed Urine Pregnancytest Poc (04/06/16 18:35) Psych Screen (04/06/16 19:11) Lorazepam Inj (Ativan Inj) (04/06/16 21:45) Haloperidol Inj (Haldol Inj) (04/06/16 21:45) Acetaminophen (Tylenol) (04/06/16 21:45) Restraints Non-Violent GUERO.Q3H (04/06/16 22:11) MDM Medical Record Reviewed: Yes Supervised Visit with GURDEEP: No Narrative Course I have been asked to perform a [id number] evaluation with this patient after she required the use of restraints. Please see Dr. Redding's note for complete details of this patient's visit. Prior to my examination the patient was becoming very combative, hostile, uncooperative necessitating the use restraints. She has been given Haldol and Ativan and upon my initial examination she is sleeping. The patient's restraints will be removed shortly if she continues to be cooperative. 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
[2016-04-06 22:36] VITALS: RESP 19
[2016-04-07 02:27] VITALS: BP 107/59; PULSE 91; RESP 17; O2SAT 99
[2016-04-07 06:26] VITALS: BP 132/86; PULSE 94; RESP 17; O2SAT 99
--- NOTE | 2016-04-07 11:08 | PD ---
History of Present Illness Chief Complaint: Psychiatric Symptoms Time Seen by Provider: 11:00 Travel History International Travel<30 Days: No Contact w/Intl Traveler<30days: [place] of Country Traveled to: PT STATES [facility] Known affected area: No Legal Status Legal Status: Peralta Act Peralta Act Signed By: Leeann Williamson History of Present Illness: HIstory of Present Illness The patient is a 30-year-old after Croatian female with history of substance use disorder who presents to the emergency department via police and EMS as a Peralta act initiated by [facility]. As per the BA report the patient advised the officers that she had been using narcotics and was having thoughts of suicide. She informed ed providers that she" used cocaine, Flacka, and tequila earlier tonight in an attempt to kill herself The patient states that she is tired of this life and I want to move onto the next life." Patient was monitored in J od. She presented in an agitated and uncooperative manner , verbally threatening and demanding to leave as well. She was also exposing herself to male staff and patient's and required frequent redirection. No labs were obtained secondary to her agitated state. As per EMR this patient has had several visits to Ed in the past weeks after she has used substances including Flakka. She was briefly hospitalized at [facility] but it was determined that she was malingering and exaggerating symptoms in order to obtain alf. This morning the patient is awake, alert, clinically sober. She is demanding and hostile when her needs are not met immediately. She is exposing herself to male staff and has required multiple redirections and reminders. She does not appear to be responding to internal stimuli. She denies any suicidal or homicidal ideation, intent or plan. When asked she states " No daniel, not at all. I am fine". PFSH Past Medical History Cancer: No (per pt. ) Cardiovascular Problems: No (per pt. ) Diabetes: No (per pt. ) Diminished Hearing: No Endocrine: No Genitourinary: No Headaches: No (per pt.) Immune Disorder: No Musculoskeletal: No Neurologic: No Psychiatric: No (per pt.) Reproductive: No Respiratory: No Immunizations Current: Yes Seizures: No (per pt.) ?: Not Psychiatric History Psychiatric History Hx Psychiatric Treatment: The patient denies a psychiatric history. Patient did have several admitts to ED . History of Inpatient Treatment: Yes ([facility] Apr 03 to Apr 04, 2016 ) Guns or firearms in home: No Social History Single female. has 3 small children. Stays with friends. Unemployed Hx Alcohol Use: Yes Hx Tobacco Use: Yes Hx Substance Use: Yes Substance Use Type: Alcohol, Crack, Marijuana, Nicotine/Cigarettes, Cocaine, Other Other Substances Used: Pt says she will take whatever you put in front of me. Hx of Substance Use Treatment: No Family Psychiatric History None reported Allergies-Medications (Allergen,Severity, Reaction): Coded Allergies: No Known Allergies (Verified , 04/02/16) Reported Meds & Prescriptions Reported Meds & Active Scripts Active Quetiapine (Quetiapine Fumarate) 25 Mg Tab 25 Mg PO BID 5 Days Review of Systems Except as stated in HPI: all other systems reviewed are Neg Exam Alert: Yes [place]: Person (ox4) Mood: Oppositional Affect: Euthymic Speech: Clear, Logical Eye Contact: Normal Memory Intact: Comment (not formally tetsed) Hallucinations: Other (negative) Suicidal: Ideation (deneis any) Homicidal: Ideation (deneis any) Insight/Judgement poor. poor MDM Medical Decision Making Medical Record Reviewed: Yes Assessment/Plan 30 year old female with history of substance use disorder who presents under a BA after she contacted ALBERTO and reported she had been using narcotics and was having thoughts of suicide. she made no attempts at harming self and once she was sober she denied any intent to harm herself or anyone else. Lift BA as patient does not meet criteria and does not present any psychiatric symptoms. Orders Alcohol (Ethanol) (04/06/16 18:30) Complete Blood Count With Diff (04/06/16 18:30) Comprehensive Metabolic Panel (04/06/16 18:30) Drug Screen, Random Urine (04/06/16 18:30) Salicylates (Aspirin) (04/06/16 18:30) Tylenol (Acetaminophen) (04/06/16 18:30) Urinalysis - C+S If Indicated (04/06/16 18:30) Ua Includes Microscopic (04/06/16 18:30) Iv Access Insert/Monitor (04/06/16 18:30) Ecg Monitoring (04/06/16 18:30) Oximetry (04/06/16 18:30) Lorazepam Inj (Ativan Inj) (04/06/16 18:30) Sodium Chloride 0.9% Flush (Ns Flush) (04/06/16 18:30) Sodium Chlor 0.9% 1000 Ml Inj (Ns 1000 M (04/06/16 18:30) Creatine Kinase (Cpk) (04/06/16 18:30) Troponin I (04/06/16 18:30) Ed Urine Pregnancytest Poc (04/06/16 18:35) Psych Screen (04/06/16 19:11) Lorazepam Inj (Ativan Inj) (04/06/16 21:45) Haloperidol Inj (Haldol Inj) (04/06/16 21:45) Acetaminophen (Tylenol) (04/06/16 21:45) Restraints Non-Violent GUERO.Q3H (04/06/16 22:11) Diet Regular Basic (04/07/16 Breakfast) Results Vital Signs Date Time Temp Pulse Resp B/P Pulse Ox O2 Delivery O2 Flow Rate FiO2 04/07/16 06:26 94 17 132/86 99 Room Air 04/07/16 02:27 91 17 107/59 99 Room Air 04/06/16 22:36 19 04/06/16 19:35 97.4 77 18 142/75 97 Room Air 04/06/16 18:32 96.9 73 20 117/78 99 Diagnosis Primary Impression: 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
[2016-04-07 11:20] VITALS: PULSE 88; RESP 16
== END 2016-04-07 11:48 | disposition home or self-care (01) ==
LOC: NEDAMB 18:14 → NEPJ 04-07 11:48
DX: F19.24 Other psychoactive substance dependence with psychoactive substance-induced mood disorder (principal)
CPT/HCPCS: 96372; 99285; J1630; J2060

== ENCOUNTER 2016-04-12 12:41 | Emergency (ER) | payer MEDICAID, OTHER ==
[~2016-04-12] VITALS: Ht 172.7 cm; Wt 100.0 kg
[2016-04-12 12:45] VITALS: BP 109/56; PULSE 89; RESP 20; TEMP 98.1; O2SAT 95
[2016-04-12] MEDS ORDERED: SODIUM CHLOR 0.9% 1000 ML INJ 1,000 ML IV SCH (12:46)
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
[2016-04-12] MEDS ORDERED: LORazepam 2 MG/ML VIAL IV PUSH ONE ×3 (13:00→23:00)
[2016-04-12] MEDS ORDERED: LORazepam 2 MG/ML VIAL IM ONE (13:00)
[2016-04-12] MEDS ORDERED: SODIUM CHLORIDE 0.9% FLUSH 5 ML FLUSH IVF PRN ×2 (13:00→14:30)
[2016-04-12] MEDS ORDERED: HALOPERIDOL LACTATE 5 MG/ML AMP IM ONE (13:00)
[2016-04-12 13:18] LABS: AUTOMATED NEUTROPHIL # 5.3 TH/MM3 (1.8-7.7); BASOPHIL # 0.1 TH/MM3 (0-0.2); BASOPHIL % 0.5 % (0.0-2.0); EOSINOPHIL # 0.2 TH/MM3 (0-0.4); HEMATOCRIT 31.8 % (35.0-46.0); HEMO FLAGS DIFF FINAL; LYMPH % 27.6 % (9.0-44.0); LYMPHOCYTE # 2.6 TH/MM3 (1.0-4.8); MEAN CELL VOLUME 80.5 FL (80.0-100.0); MEAN CORPUSCULAR HGB CONC 33.5 % (32.0-36.0); MONO % 13.5 % (0.0-8.0); NEUT % 56.4 % (16.0-70.0); PLATELET COUNT 271 TH/MM3 (150-450); RED BLOOD COUNT 3.95 MIL/MM3 (4.00-5.30); RED CELL DISTRIBUTION WIDTH 18.8 % (11.6-17.2); WHITE BLOOD COUNT 9.4 TH/MM3 (4.0-11.0)
[2016-04-12 13:28] LABS: APTT (PATIENT) 24.5 SEC (24.3-30.1); PROTHROMBIN TIME - PATIENT 10.8 SEC (9.8-11.6)
[2016-04-12 13:43] LABS: ACETAMINOPHEN LESS THAN 2.0 MCG/ML (10.0-30.0); BETA HCG QUANT 218 MIU/ML (0-5)
[2016-04-12] MEDS ORDERED: AMPICILLIN-SULBACTAM INJ 3 GM in SODIUM CHLORIDE 0.9% INJ 100 ML IV ONE (14:30)
[2016-04-12 14:41] LABS: ANION GAP 9 MEQ/L (5-15); AST (GOT) 21 U/L (15-37); BICARBONATE 23.2 MEQ/L (21.0-32.0); BLOOD UREA NITROGEN 13 MG/DL (7-18); CHLORIDE 110 MEQ/L (98-107); GLOMERULAR FILTRATION RATE 82 ML/MIN (>89); POTASSIUM 3.8 MEQ/L (3.5-5.1); SODIUM (NA) 142 MEQ/L (136-145)
[2016-04-12 14:44] LABS: ALKALINE PHOSPHATASE 75 U/L (45-117); ALT (GPT) 19 U/L (10-53); TOTAL BILIRUBIN ADULT 0.5 MG/DL (0.2-1.0)
[2016-04-12 15:13] LABS: AUTOMATED NEUTROPHIL # 5.7 TH/MM3 (1.8-7.7); BASOPHIL % 0.5 % (0.0-2.0); EOSINOPHIL # 0.1 TH/MM3 (0-0.4); EOSINOPHIL % 1.6 % (0.0-4.0); HEMATOCRIT 29.3 % (35.0-46.0); HEMO FLAGS DIFF FINAL; LYMPH % 22.1 % (9.0-44.0); MEAN CELL VOLUME 81.3 FL (80.0-100.0); MEAN CORPUSCULAR HEMOGLOBIN 25.9 PG (27.0-34.0); MEAN CORPUSCULAR HGB CONC 31.8 % (32.0-36.0); MONO % 11.3 % (0.0-8.0); NEUT % 64.5 % (16.0-70.0); PLATELET COUNT 228 TH/MM3 (150-450); RED BLOOD COUNT 3.61 MIL/MM3 (4.00-5.30); RED CELL DISTRIBUTION WIDTH 19.3 % (11.6-17.2); WHITE BLOOD COUNT 8.9 TH/MM3 (4.0-11.0)
[2016-04-12 15:40] LABS: APTT (PATIENT) 22.8 SEC (24.3-30.1)
[2016-04-12] MEDS ORDERED: IOHEXOL 350 MG/ML 10 ML VIAL (for RAD DIAG) IV ONE (15:46)
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
[2016-04-12] MEDS ORDERED: AUGM875T PO (16:36)
[2016-04-12 17:00] VITALS: BP 105/55; PULSE 96; RESP 20; O2SAT 100
[2016-04-12 19:45] VITALS: BP 136/80; PULSE 92; RESP 17; O2SAT 100
[2016-04-12] MEDS ORDERED: diphenhydrAMINE HCL 50 MG/ML VIAL IV PUSH ONE (23:00)
[2016-04-12] MEDS ORDERED: OLANZapine IM 10 MG VIAL IM ONE (23:00)
[2016-04-13 02:28] VITALS: RESP 18
[2016-04-13 06:10] VITALS: BP 114/51; PULSE 73; RESP 18; O2SAT 98
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
[2016-04-14] MEDS ORDERED: AUGM875T PO (14:58)
== END 2016-04-13 11:11 | disposition home or self-care (01) ==
LOC: NEPE 12:41 → NEPJ 04-13 11:11
DX: H72.92 Unspecified perforation of tympanic membrane, left ear (principal); S09.22XA Traumatic rupture of left ear drum, initial encounter; J01.10 Acute frontal sinusitis, unspecified; J01.00 Acute maxillary sinusitis, unspecified; F19.20 Other psychoactive substance dependence, uncomplicated; D64.9 Anemia, unspecified; X99.8XXA Assault by other sharp object, initial encounter; Z33.1 Pregnant state, incidental; Z72.0 Tobacco use; Z04.6 Encounter for general psychiatric examination, requested by authority; Z78.1 Physical restraint status
CPT/HCPCS: 70450; 70491; 80053; 80329; 84702; 84703; 85025; 85610; 85730; 86077; 86850; 86870; 86886; 86900; 86901; 86920; 86922; 96361; 96365; 96372; 96375; 96376; 99291; J0295; J1200; J1630; J2060; J7030; Q9967; 80320; G0480

== ENCOUNTER 2016-04-14 13:25 | Emergency (ER) | payer MEDICAID, OTHER ==
[~2016-04-14] VITALS: Ht 177.8 cm; Wt 80.0 kg
[~2016-04-14 13:25] MED LIST changes: +AUGM875T PO
[2016-04-14 13:37] VITALS: BP 139/88; PULSE 100; RESP 16; TEMP 98.8; O2SAT 97
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
[2016-04-14] MEDS ORDERED: AUGM875T PO (14:58)
== END 2016-04-14 15:23 | disposition home or self-care (01) ==
LOC: NEDAMB 13:25 → NEPE 15:23
DX: S00.452A Superficial foreign body of left ear, initial encounter (principal); X58.XXXA Exposure to other specified factors, initial encounter
CPT/HCPCS: 99283

== ENCOUNTER 2016-05-03 12:50 | Emergency (ER) | payer SELFPAY ==
[~2016-05-03] VITALS: Ht 175.3 cm; Wt 81.8 kg
[2016-05-03 12:53] VITALS: BP 118/73; PULSE 92; RESP 16; TEMP 98.2; O2SAT 99
== END 2016-05-03 14:30 | disposition left against medical advice (07) ==
LOC: NED 12:50
DX: R10.9 Unspecified abdominal pain (principal); Z53.21 Procedure and treatment not carried out due to patient leaving prior to being seen by health care provider
CPT/HCPCS: 99281

== ENCOUNTER 2016-05-03 20:10 | Emergency (ER) | payer MEDICAID, OTHER ==
[~2016-05-03] VITALS: Ht 172.7 cm; Wt 85.0 kg
[2016-05-03 21:04] VITALS: BP 121/73; PULSE 77; RESP 16; TEMP 98.3; O2SAT 100
[2016-05-03 22:14] LABS: AUTOMATED NEUTROPHIL # 3.2 TH/MM3 (1.8-7.7); BASOPHIL # 0.1 TH/MM3 (0-0.2); BASOPHIL % 0.7 % (0.0-2.0); EOSINOPHIL # 0.3 TH/MM3 (0-0.4); EOSINOPHIL % 3.7 % (0.0-4.0); HEMATOCRIT 29.2 % (35.0-46.0); HEMO FLAGS DIFF FINAL; LYMPH % 45.3 % (9.0-44.0); LYMPHOCYTE # 3.5 TH/MM3 (1.0-4.8); MEAN CELL VOLUME 81.6 FL (80.0-100.0); MEAN CORPUSCULAR HEMOGLOBIN 26.6 PG (27.0-34.0); MEAN CORPUSCULAR HGB CONC 32.6 % (32.0-36.0); NEUT % 41.3 % (16.0-70.0); PLATELET COUNT 256 TH/MM3 (150-450); RED BLOOD COUNT 3.58 MIL/MM3 (4.00-5.30); RED CELL DISTRIBUTION WIDTH 18.3 % (11.6-17.2); WHITE BLOOD COUNT 7.6 TH/MM3 (4.0-11.0)
[2016-05-03 22:34] LABS: ALT (GPT) 14 U/L (10-53); ANION GAP 7 MEQ/L (5-15); AST (GOT) 11 U/L (15-37); BICARBONATE 25.1 MEQ/L (21.0-32.0); BLOOD UREA NITROGEN 7 MG/DL (7-18); CHLORIDE 108 MEQ/L (98-107); GLOMERULAR FILTRATION RATE 156 ML/MIN (>89); POTASSIUM 3.6 MEQ/L (3.5-5.1); SODIUM (NA) 140 MEQ/L (136-145)
[2016-05-03 22:50] LABS: ALKALINE PHOSPHATASE 65 U/L (45-117); BETA HCG QUANT 35298 MIU/ML (0-5); TOTAL BILIRUBIN ADULT 0.3 MG/DL (0.2-1.0)
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
--- NOTE | 2016-05-04 00:52 | RADRPT ---
EXAM DATE/TIME: 05/03/2016 23:42 [facility] COMPARISON: No previous studies available for comparison. INDICATIONS : Pain. LAB(S): Beta-hC MEDICAL HISTORY : . Diabetes. SURGICAL HISTORY : section. ENCOUNTER: Initial ACUITY: 1 day PAIN SCORE: 6/10 LOCATION: Bilateral pelvis MEASUREMENTS: UTERUS: 13.1 x 8.4 x 6.7 cm ENDOMETRIAL STRIPE: 13 mm RIGHT OVARY: 3.1 x 2.7 x 1.9 cm LEFT OVARY: 3.2 x 2.3 x 2.3 cm FINDINGS: Patient refused transvaginal examination. UTERUS: The myometrium has homogeneous echotexture without mass. There is a single intrauterine gestational sac identified measuring 2.6 x 1.5 x 2.0 cm. Embryo is identified with a crown-rump length measuremen t of 1.2 cm indicating gestational age of 7 weeks and 2 days. A yolk sac is visualized. M-mode Dopple r documents a heart rate of 131 beats per minute. There is a crescentic area of hypoechoic mate rial adjacent to the gestational sac likely representing subchorionic hemorrhage. RIGHT OVARY: Ovary contains no mass or significant cystic lesion. LEFT OVARY: Ovary contains no mass or significant cystic lesion. MISCELLANEOUS: No free fluid. CONCLUSION: 1. There is a single intrauterine gestation identified with estimated age of 7 weeks and 2 days. Norm al heart rate is documented. There is a small subchorionic hemorrhage adjacent to the gestation al sac. 2. Ovaries have a normal appearance. Tate Marte MD on May 04, 2016 at 0:48 Board Certified Radiologist. This report was verified electronically.
[2016-05-04 01:53] VITALS: BP 126/72; PULSE 79; RESP 18; TEMP 98.2; O2SAT 100
[2016-05-04 02:00] VITALS: BP 126/72; PULSE 79; RESP 18; O2SAT 100
[2016-05-04 06:28] VITALS: BP 119/69; PULSE 68; RESP 18; O2SAT 99
[2016-05-04 11:05] VITALS: BP 111/66; PULSE 69; RESP 18
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
[2016-05-05 00:03] VITALS: BP 122/73; PULSE 89; RESP 18; TEMP 97.3; O2SAT 98
[2016-05-05 00:31] LABS: BLOOD, URINE NEG (NEG); GLUCOSE,URINE NEG (NEG); KETONE, URINE NEG (NEG); NITRITE,URINE NEG (NEG); PH, URINE 6.5 (5.0-8.5); SQUAMOUS EPITHELIAL CELL URINE <1 /hpf (0-5); URINE COLOR LIGHT-YELLOW (YELLW/STRAW)
[2016-05-05 00:34] LABS: AMPHETAMINE, URINE NEG (NEG); BARBITURATES, URINE NEG (NEG); COCAINE, URINE NEG (NEG)
[2016-05-05 00:47] LABS: COMMENT (UR) CULT NOT INDICATED; CULTURE IF INDICATED CULT NOT INDICATED
[2016-05-05 02:50] VITALS: BP 120/66; PULSE 73; RESP 18; O2SAT 97
[2016-05-05 10:55] VITALS: BP 110/61; PULSE 74; RESP 18; O2SAT 99
[2016-05-05 14:00] VITALS: BP 136/86; PULSE 76; RESP 18
[2016-05-05] MEDS ORDERED: ACETAMINOPHEN 325 MG TAB PO ONE (15:15)
[2016-05-05 22:47] VITALS: BP 121/80; PULSE 72; RESP 18; O2SAT 98
[2016-05-06 02:42] VITALS: BP 106/53; PULSE 67; RESP 18
[2016-05-06 06:27] VITALS: BP 122/74; PULSE 75; RESP 18; O2SAT 99
[2016-05-06] MEDS ORDERED: OLANZapine IM 10 MG VIAL IM PRN (10:30)
[2016-05-06] MEDS ORDERED: OLANZapine 5 MG TAB PO PRN (10:30)
[2016-05-06 10:39] VITALS: BP 120/60; PULSE 79; RESP 18; O2SAT 99
[2016-05-06 11:47] VITALS: BP 120/60; PULSE 97; RESP 18; O2SAT 99
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
[2016-05-07] MEDS ORDERED: MACR100C2 PO (03:16)
== END 2016-05-06 13:15 | disposition home or self-care (01) ==
LOC: NEDAMB 20:10 → NEPJ 05-06 13:15
DX: O26.891 Other specified pregnancy related conditions, first trimester (principal); R10.30 Lower abdominal pain, unspecified; S01.511A Laceration without foreign body of lip, initial encounter; F19.94 Other psychoactive substance use, unspecified with psychoactive substance-induced mood disorder; F19.24 Other psychoactive substance dependence with psychoactive substance-induced mood disorder; F17.200 Nicotine dependence, unspecified, uncomplicated; Z3A.01 Less than 8 weeks gestation of pregnancy; Y04.2XXA Assault by strike against or bumped into by another person, initial encounter
CPT/HCPCS: 76700; 80053; 80307; 80320; 81001; 84702; 85025

== ENCOUNTER 2016-05-06 23:38 | Emergency (ER) | payer OTHER, MEDICAID ==
[~2016-05-06] VITALS: Ht 165.1 cm; Wt 69.0 kg
[2016-05-06 23:45] VITALS: BP 137/82; PULSE 87; RESP 16; TEMP 98.5; O2SAT 99
[2016-05-06 23:54] VITALS: RESP 16; O2SAT 98
[2016-05-07 00:06] LABS: AUTOMATED NEUTROPHIL # 6.2 TH/MM3 (1.8-7.7); BASOPHIL % 0.3 % (0.0-2.0); EOSINOPHIL # 0.1 TH/MM3 (0-0.4); EOSINOPHIL % 1.2 % (0.0-4.0); HEMATOCRIT 29.2 % (35.0-46.0); HEMO FLAGS DIFF FINAL; LYMPH % 21.4 % (9.0-44.0); LYMPHOCYTE # 1.9 TH/MM3 (1.0-4.8); MEAN CELL VOLUME 81.6 FL (80.0-100.0); MEAN CORPUSCULAR HEMOGLOBIN 27.1 PG (27.0-34.0); MEAN CORPUSCULAR HGB CONC 33.2 % (32.0-36.0); MONO % 7.9 % (0.0-8.0); NEUT % 69.2 % (16.0-70.0); PLATELET COUNT 251 TH/MM3 (150-450); RED BLOOD COUNT 3.58 MIL/MM3 (4.00-5.30); RED CELL DISTRIBUTION WIDTH 18.5 % (11.6-17.2); WHITE BLOOD COUNT 8.9 TH/MM3 (4.0-11.0)
[2016-05-07 00:22] LABS: ALT (GPT) 12 U/L (10-53); ANION GAP 8 MEQ/L (5-15); AST (GOT) 8 U/L (15-37); BLOOD UREA NITROGEN 7 MG/DL (7-18); CHLORIDE 106 MEQ/L (98-107); GLOMERULAR FILTRATION RATE 139 ML/MIN (>89); POTASSIUM 3.8 MEQ/L (3.5-5.1); SODIUM (NA) 140 MEQ/L (136-145)
[2016-05-07] MEDS ORDERED: ONDANSETRON HCL 4 MG/2 ML VIAL IV ONE (00:30)
[2016-05-07] MEDS ORDERED: SODIUM CHLOR 0.9% 1000 ML INJ 1,000 ML IV ONE (00:30)
[2016-05-07 00:40] LABS: ACETAMINOPHEN LESS THAN 2.0 MCG/ML (10.0-30.0); ALKALINE PHOSPHATASE 62 U/L (45-117); BETA HCG QUANT 50752 MIU/ML (0-5); TOTAL BILIRUBIN ADULT 0.3 MG/DL (0.2-1.0)
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
[2016-05-07 02:14] LABS: AMPHETAMINE, URINE NEG (NEG); BARBITURATES, URINE NEG (NEG); COCAINE, URINE NEG (NEG)
[2016-05-07 02:17] LABS: BACTERIA, URINE RARE /hpf; BLOOD, URINE NEG (NEG); COMMENT (UR) CULT NOT INDICATED; CULTURE IF INDICATED CULT NOT INDICATED; GLUCOSE,URINE NEG (NEG); KETONE, URINE 10 mg/dL (NEG); MUCUS URINE FEW /lpf (OCC); NITRITE,URINE NEG (NEG); RENAL EPITHELIAL CELLS <1 /hpf; SQUAMOUS EPITHELIAL CELL URINE 6 /hpf (0-5); URINE COLOR LIGHT-YELLOW (YELLW/STRAW)
[2016-05-07] MEDS ORDERED: MACR100C2 PO (03:16)
[2016-05-07 06:41] VITALS: BP 125/67; PULSE 83; RESP 18; O2SAT 99
--- NOTE | 2016-05-07 08:52 | MB ---
cc: HEENA VO MD DATE OF CONSULTATION 05/07/2016 REQUESTING PHYSICIAN Emergency Department REASON FOR CONSULTATION Peralta Act HISTORY OF PRESENT ILLNESS Ms. Burks is a 30-year-old -F[place] female with a history of polysubstance usage as well as malingering who was in the psychiatric emergency room over the weekend under a physician certificate. Psychiatric nurse practitioner saw the patient yesterday and lifted the physician certificate and discharged the patient from the ED. Nursing staff informs me that the patient told them yesterday that she was going to go out, use substances then return, and this is precisely what she did. On her return she was Peralta Acted by the ED provider. Reviewing the electronic medical record, I note the patient has multiple prior ED visits and psychiatric hospitalization, chiefly for the sequelae of substance use issues. The patient is seen and examined, chart reviewed, case discussed with the nurse in the J-pod. On my examination today, the patient is extremely unengaged in the psychiatric interview. She says that she left the emergency room yesterday and used a bunch of drugs recreationally. She says that she called [facility] because her chest hurt. She has no somatic complaints now. She does report feeling somewhat depressed, but I can elicit no other real depressive or hypomanic/manic symptoms. She says that if she is discharged from the ED she will walk onto the railroad tracks. She says that she wants us to get her into [facility], but it is my understanding that she is on a wait list. No AVH or other psychotic symptoms. She does not view her substance use as problematic. PAST PSYCHIATRIC HISTORY, FAMILY HISTORY, CHEMICAL DEPENDENCY, SOCIAL HISTORY I have obtained these histories under Visit #[id number]. These are essentially unchanged today. REVIEW OF SYSTEMS No reported somatic complaints today. PAST MEDICAL HISTORY The patient is approximately 7 weeks . PHYSICAL EXAMINATION VITAL SIGNS: Temperature is 98.5, pulse is 83, respirations 18, blood pressure 125/67, pulse oximetry 99% on room air. Physical examination was completed by the ED provider. On my examination today, the patient is in no acute physical distress. The patient is fairly uncooperative which limits the examination but I can detect no overt signs of withdrawal. LABORATORIES REVIEWED CBC is significant for a normocytic anemia with a hemoglobin of 9.7. CMP is unremarkable. TSH is low. Beta hCG is elevated consistent with her state. Toxicology is positive for cannabinoids and alcohol level is undetectable. Urinalysis results reviewed. MENTAL STATUS EXAM The patient is in hospital gown. She is somewhat disheveled. She is awake and alert and oriented to person and hospital at least. No abnormal motor movements noted. Speech is within normal limits for rate, tone and volume. Mood is somewhat dysphoric but not really depressed. Affect is restricted. Thought process linear. No loosening of associations. No evident delusions. No AVH. Threatens to walk into the railroad tracks if we discharge her from the ED but otherwise no SI or HI. Insight and judgment are chronically poor, chiefly related surrounding substance use issues. ASSESSMENT AND PLAN 1. Polysubstance abuse, F19.20. 2. Malingering suicidal ideation, Z76.5. This is a 30-year-old -Fijian female with psychiatric history as detailed above who presented voluntarily to the ED, placed under a Peralta ACT by the ED provider. The patient does describe some low mood, but I suspect this is either substance-related or outright malingered, which I suspect is also the naheed of her reported threat to walk into the railroad tracks if she is discharged from the ED. The plan over the weekend had been to transfer the patient for chemical dependency treatment at the addiction receiving facility under a physician certificate, and it is my belief that the substance use is the patient's primary fifi suman psychiatric issue. I will therefore lift the Peralta Act and place the patient back under a physician certificate, and I have instructed the nursing staff in the ED to place her back on the list at the addiction receiving facility. The patient will be retained in the ED under the physician certificate until she can be transferred to addiction receiving facility. Thank you very much for this consultation. Heena Vo DC/CIRA /8:14 AM 8:38 AM BERT
--- NOTE | 2016-05-07 11:40 | EKG ---
Date Performed: 05/06/2016 Time Performed: 23:45:39 PTAGE: 30 years EKG: Sinus rhythm NORMAL ECG PREVIOUS TRACING : 03/27/2016 10.50 DOCTOR: Raji Rosa Interpretating Date/Time 05/07/2016 11:38:19
[2016-05-07 14:00] VITALS: BP 111/66; PULSE 71; RESP 18
[2016-05-07] MEDS ORDERED: ACETAMINOPHEN 325 MG TAB PO ONE (17:15)
[2016-05-07 22:07] VITALS: BP 142/66; PULSE 96; RESP 18; O2SAT 99
[2016-05-07] MEDS ORDERED: IBUPROFEN 800 MG TAB PO ONE (22:15)
[2016-05-08 02:14] VITALS: RESP 18
[2016-05-08 06:19] VITALS: BP 154/65; PULSE 79; RESP 18; TEMP 97.6; O2SAT 98
[2016-05-08 11:23] VITALS: BP 138/62; PULSE 84; RESP 18; O2SAT 100
[2016-05-08 18:30] VITALS: BP 127/60; PULSE 68; RESP 18; O2SAT 99
[2016-05-08 22:00] VITALS: BP 136/68; PULSE 79; RESP 18; O2SAT 97
[2016-05-09 02:16] VITALS: BP 107/57; PULSE 67; RESP 17; O2SAT 99
[2016-05-09 06:16] VITALS: BP 135/80; PULSE 79; RESP 19; O2SAT 98
[2016-05-09 10:59] VITALS: BP 121/58; PULSE 77; RESP 18; O2SAT 100
== END 2016-05-09 17:00 | disposition home or self-care (01) ==
LOC: NEPE 23:38 → NEPJ 05-09 17:00
DX: O99.341 Other mental disorders complicating pregnancy, first trimester (principal); F32.9 Major depressive disorder, single episode, unspecified; R45.851 Suicidal ideations; O26.891 Other specified pregnancy related conditions, first trimester; R82.71 Bacteriuria; F19.20 Other psychoactive substance dependence, uncomplicated; F17.200 Nicotine dependence, unspecified, uncomplicated; Z76.5 Malingerer [conscious simulation]; Z86.59 Personal history of other mental and behavioral disorders; Z3A.01 Less than 8 weeks gestation of pregnancy
CPT/HCPCS: 80053; 80307; 80320; 81001; 83690; 84443; 84702; 85025; 93005; 96361; 96374; 99284; J2405; J7030; 80329; G0480

== ENCOUNTER 2016-05-15 15:03 | Emergency (ER) | payer MEDICAID, OTHER ==
[~2016-05-15 15:03] MED LIST changes: -AUGM875T PO; +MACR100C2 PO; -QUET1TAB7 PO
[2016-05-15] MEDS ORDERED: LORazepam 2 MG/ML VIAL IV PUSH ONE (15:15)
[2016-05-15] MEDS ORDERED: SODIUM CHLORIDE 0.9% FLUSH 5 ML FLUSH IVF PRN (15:15)
[2016-05-15] MEDS ORDERED: diphenhydrAMINE HCL 50 MG/ML VIAL IM ONE (15:30)
[2016-05-15] MEDS ORDERED: LORazepam 2 MG/ML VIAL IM ONE (15:30)
[2016-05-15] MEDS ORDERED: HALOPERIDOL LACTATE 5 MG/ML AMP IV PUSH ONE (15:30)
[2016-05-15] MEDS ORDERED: HALOPERIDOL LACTATE 5 MG/ML AMP IM ONE (15:30)
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
[2016-05-15 16:30] VITALS: BP 116/68; PULSE 72; RESP 16; O2SAT 99
--- NOTE | 2016-05-15 16:49 | RADRPT ---
EXAM DATE/TIME: 05/15/2016 16:28 [facility] COMPARISON: CT BRAIN W/O CONTRAST, April 12, 2016, 15:31. INDICATIONS : Altered mental status. RADIATION DOSE: 46.08 CTDIvol (mGy) MEDICAL HISTORY : Seizures. SURGICAL HISTORY : None. ENCOUNTER: Initial ACUITY: 1 day PAIN SCALE: 0/10 LOCATION: cranial TECHNIQUE: Multiple contiguous axial images were obtained of the head. Using automated exposure control and adj ustment of the mA and/or kV according to patient size, radiation dose was kept as low as reasonably a chievable to obtain optimal diagnostic quality images. FINDINGS: CEREBRUM: The ventricles are normal for age. No evidence of midline shift, mass lesion, hemorrhage or acute in farction. No extra-axial fluid collections are seen. POSTERIOR FOSSA: The cerebellum and brainstem are intact. The 4th ventricle is midline. The cerebellopontine angle i s unremarkable. EXTRACRANIAL: The visualized portion of the orbits is intact. SKULL: The calvaria is intact. No evidence of skull fracture. CONCLUSION: Unremarkable trauma study. Anuel Gottlieb MD on May 15, 2016 at 16:43 Board Certified Radiologist. This report was verified electronically.
[2016-05-15 16:52] LABS: AUTOMATED NEUTROPHIL # 9.3 TH/MM3 (1.8-7.7); BASOPHIL % 0.2 % (0.0-2.0); EOSINOPHIL % 0.2 % (0.0-4.0); HEMATOCRIT 28.6 % (35.0-46.0); HEMO FLAGS DIFF FINAL; LYMPHOCYTE # 2.1 TH/MM3 (1.0-4.8); MEAN CELL VOLUME 82.5 FL (80.0-100.0); MEAN CORPUSCULAR HEMOGLOBIN 26.9 PG (27.0-34.0); MEAN CORPUSCULAR HGB CONC 32.5 % (32.0-36.0); MONO % 13.1 % (0.0-8.0); NEUT % 70.5 % (16.0-70.0); PLATELET COUNT 242 TH/MM3 (150-450); RED BLOOD COUNT 3.46 MIL/MM3 (4.00-5.30); RED CELL DISTRIBUTION WIDTH 18.7 % (11.6-17.2); WHITE BLOOD COUNT 13.2 TH/MM3 (4.0-11.0)
--- NOTE | 2016-05-15 16:56 | RADRPT ---
EXAM DATE/TIME: 05/15/2016 16:28 [facility] COMPARISON: No previous studies available for comparison. INDICATIONS : Altered mental status and head trauma. RADIATION DOSE: 64.12 CTDIvol (mGy) MEDICAL HISTORY : Seizures. SURGICAL HISTORY : None. ENCOUNTER: Initial ACUITY: 1 day PAIN SCORE: 0/10 LOCATION: facial TECHNIQUE: Volumetric scanning of the facial bones was performed. Using automated exposure control and adjustme nt of the mA and/or kV according to patient size, radiation dose was kept as low as reasonably achiev able to obtain optimal diagnostic quality images. FINDINGS: ORBITS: The orbital and infraorbital osseous structures are intact. The retroconal structures have a normal configuration. No radiopaque foreign bodies are seen. NASAL BONE: The nasal bone and maxillary spine are intact ZYGOMATIC ARCHES: Symmetric without evidence of fracture. SINUSES: Is mild mucosal thickening in the right maxillary sinus. There are no air-fluid levels. NASAL CAVITY: The nasal septum is intact and midline. The lacrimal ducts are intact. SOFT TISSUES: No radiopaque foreign bodies seen. There is soft tissue swelling over the left maxilla. INTRACRANIAL: No intracranial air seen. CRIBIFORM PLATE: Grossly intact. CONCLUSION: Mild mucosal thickening in the right maxillary sinus. Soft tissue swelling with no ac rhoda fracture. Anuel Gottlieb MD on May 15, 2016 at 16:48 Board Certified Radiologist. This report was verified electronically.
[2016-05-15 17:19] VITALS: BP 105/70; PULSE 88; RESP 18; O2SAT 100
[2016-05-15 17:28] LABS: BICARBONATE 22.2 MEQ/L (21.0-32.0)
[2016-05-15 17:30] LABS: POTASSIUM 3.5 MEQ/L (3.5-5.1)
--- NOTE | 2016-05-15 17:49 | PD ---
Physical Exam Narrative Received sign out from previous team to follow up with her BMP and bHCG. Please see previous provider's note for further details. Pt is a 30yo F who is under police custody. Pt was given haldol 2mg, ativan 2mg and diphenhydramine 50mg at 3:30pm by previous team. Pt is arousable but still sleepy. CT brain is unremarkable. CT maxillofacial showed soft tissue swelling with no acute fracture. Labs reviewed, mild leukocytosis at 13.2. H/H is low at 9.3/28.6 but is at baseline. Creatinine mildly elevated at 1.16. Glucose is low at 67, will give 25mg D50. K: 3.5, slightly hemolyzed, will give 10[place] [address] which [place] trending [place] appropriately [place] [id number] on 05/07/16. Alcohol negative. On physical exam, abdomen is soft, nontender to palpation. No rebound tenderness or guarding. I also do not see any obvious signs of vaginal bleeding. Pt is medically clear for disposition to go back to police custody once she is sober and awake from the medications she was given. Pt will remain on continuous alarm security or surveillance monitor until she is fully awake. Pt reevaluated at bedside and is now fully awake. Repeat blood glucose is 65. Pt given juice orally. Moving all extremities and I explained the CT scan results to her. Pt is under police custody so will be discharge to police. Return precautions given. Data Data Last Documented VS Vital Signs Date Time Temp Pulse Resp B/P Pulse Ox O2 Delivery O2 Flow Rate FiO2 05/15/16 17:19 88 18 105/70 100 Orders Basic Metabolic Panel (Bmp) (05/15/16 15:11) Complete Blood Count With Diff (05/15/16 15:11) Beta Hcg (Quant/Titer) (05/15/16 15:11) Ct Brain W/O Iv Contrast(Rout) (05/15/16 15:11) Ct Facial Bones W/O Iv Cont (05/15/16 15:11) Iv Access Insert/Monitor (05/15/16 15:11) Sodium Chloride 0.9% Flush (Ns Flush) (05/15/16 15:15) Lorazepam Inj (Ativan Inj) (05/15/16 15:15) Complete Rh (05/15/16 15:13) Haloperidol Inj (Haldol Inj) (05/15/16 15:30) Drug Screen, Random Urine (05/15/16 15:23) Alcohol (Ethanol) (05/15/16 15:23) Haloperidol Inj (Haldol Inj) (05/15/16 15:30) Lorazepam Inj (Ativan Inj) (05/15/16 15:30) Diphenhydramine Inj (Benadryl Inj) (05/15/16 15:30) Dextrose 50% In Jose Angel (Vial) Inj (D50w (Vi (05/15/16 18:00) Potassium Chlor 10 Meq Premix (Kcl 10 Me (05/15/16 18:00) Potassium Chlor 10 Meq Premix (Kcl 10 Me (05/15/16 18:15) Blood Glucose (05/15/16 18:59) Labs Laboratory Tests Test 05/15/16 16:10 White Blood Count 13.2 TH/MM3 Red Blood Count 3.46 MIL/MM3 Hemoglobin 9.3 GM/DL Hematocrit 28.6 % Mean Corpuscular Volume 82.5 FL Mean Corpuscular Hemoglobin 26.9 PG Mean Corpuscular Hemoglobin 32.5 % Concent Red Cell Distribution Width 18.7 % Platelet Count 242 TH/MM3 Mean Platelet Volume 10.5 FL Neutrophils (%) (Auto) 70.5 % Lymphocytes (%) (Auto) 16.0 % Monocytes (%) (Auto) 13.1 % Eosinophils (%) (Auto) 0.2 % Basophils (%) (Auto) 0.2 % Neutrophils # (Auto) 9.3 TH/MM3 Lymphocytes # (Auto) 2.1 TH/MM3 Monocytes # (Auto) 1.7 TH/MM3 Eosinophils # (Auto) 0.0 TH/MM3 Basophils # (Auto) 0.0 TH/MM3 CBC Comment DIFF FINAL Differential Comment Sodium Level 142 MEQ/L Potassium Level 3.5 MEQ/L Chloride Level 110 MEQ/L Carbon Dioxide Level 22.2 MEQ/L Anion Gap 10 MEQ/L Blood Urea Nitrogen 10 MG/DL Creatinine 1.16 MG/DL Estimat Glomerular Filtration 67 ML/MIN Rate Random Glucose 66 MG/DL Calcium Level 9.0 MG/DL Human Chorionic Gonadotropin, 93770 MIU/ML Quant Ethyl Alcohol Level LESS THAN 3 MG/DL Blood Type A NEGATIVE Rho(D) Type NEGATIVE MDM Supervised Visit with GURDEEP: No Diagnosis Primary Impression: 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 Return to the ED if any concerning symptoms. Med/Other Pt SpecificInfo: No Change to Meds Disposition: [address] LAW ENFORCEMNT Condition: Stable Britta Hanna DO May 15, 2016 17:49
[2016-05-15] MEDS ORDERED: POTASSIUM CHLOR 10 MEQ PREMIX 100 ML IV SCH (18:00)
[2016-05-15] MEDS ORDERED: DEXTROSE 50% IN WATER 50 ML VIAL(D50) IV PUSH ONE (18:00)
[2016-05-15] MEDS ORDERED: POTASSIUM CHLOR 10 MEQ PREMIX 100 ML IV ONE (18:15)
== END 2016-05-15 20:21 ==
LOC: NEPI 15:03
DX: O99.320 Drug use complicating pregnancy, unspecified trimester (principal); F19.24 Other psychoactive substance dependence with psychoactive substance-induced mood disorder; Z3A.00 Weeks of gestation of pregnancy not specified
CPT/HCPCS: 70450; 70486; 80048; 80320; 84702; 85025; 96372; 96374; 96375; 99285; J1200; J1630; J2060; J3480

== ENCOUNTER 2016-10-25 10:38 | Emergency (ER) | payer MEDICAID, OTHER ==
[~2016-10-25] VITALS: Ht 167.6 cm; Wt 90.7 kg
[2016-10-25] MEDS ORDERED: ACETAMINOPHEN 325 MG TAB PO ONE (11:30)
--- NOTE | 2016-10-25 12:00 | PD ---
HPI Chief Complaint Abdominal pain Date Seen: Oct 25, 2016 Time Seen: 11:30 Travel History International Travel<30 Days: No Contact w/Intl Traveler<30Days: No Known Affected Area: No History of Present Illness HPI Patient is a 31-year-old at 33 weeks and 5 days who presents with abdominal pain. Patient gets her care with Dr. Romo. She reports that this abdominal pain started last night around 10-11 PM. She describes the pain as being located in this bilateral suprapubic and pelvic areas and feels like pressure. She denies that it feels like contractions though she does report that she seems to have increased pressure every 5 minutes or so. She reports that this pain became gradually worse overnight and got as bad as a 7 out of 10. Now she describes the pain as a 6 out of 10. She hasn't taken anything for this pain. She also had 2 episodes of vomiting this morning, and nonbloody nonbilious. She is denying any leakage of fluid, vaginal bleeding, contractions. She reports movement. Para: 3 : 5 History Past Medical History Medical History: Denies Significant Hx Obstetric History Obstetric History Patient is a . She reports that her last delivery was an emergency C- section for decreased heart rate. This baby spent some time in the NICU. All the rest of her deliveries were full term vaginal deliveries. Past Surgical History Narrative Surgical Emergency last delivery Family History Narrative Family History No family history of diabetes, hypertension, problems in . Family History: Negative Social History Narrative Social History Patient is incarcerated at [facility]. Allergies-Medications (Allergen,Severity, Reaction): Coded Allergies: No Known Allergies (Verified , 10/25/16) Home Meds Active Scripts Nitrofurantoin Monohydrate Macrocrystals (Macrobid)100 Mg [id number] Mg PO BID 7 Days Ref 0 Prov:Krystyna William MD 05/07/16 Review of Systems General / Constitutional: No: Fever, Chills (occasionally feels cold) Eyes: No: Diploplia, Blurred Vision, Visual changes HENT: No: Headaches Cardiovascular: Edema (some feet swelling), No: Chest Pain or Discomfort Respiratory: No: Short of Breath Gastrointestinal: Nausea, Vomiting, Abdominal Pain, No: Diarrhea Genitourinary: No: Dysuria Musculoskeletal: Edema, Pain, No: Cramping Physical Exam Blood pressure 117/67, pulse in the 70s, respiratory rate 18, temperature 97.8, pain 7. Narrative GENERAL: Well-nourished, well-developed patient. SKIN: Warm and dry. HEAD: Normocephalic and atraumatic. EYES: No scleral icterus. No injection or drainage. ENT: No nasal drainage noted. Mucous membranes pink. Airway patent. NECK: Supple, trachea midline. No JVD. CARDIOVASCULAR: Regular rate and rhythm without murmurs, gallops, or rubs. RESPIRATORY: Breath sounds equal bilaterally. No accessory muscle use. ABDOMEN/GI: Abdomen soft, diffusely tender, bowel sounds present, no rebound, no guarding Gravid to 33-34 weeks size GENITOURINARY: External Genitalia: intact and normal in appearance Cervix: Posterior Dilatation: Closed Effacement: Thick Station: Long Membranes: Intact Uterine Contractions: none FHT's: Category: Category 1 Baseline: 135 Reactive: Reactive Variability: Moderate Decels: None EXTREMITIES: No cyanosis or edema. BACK: Nontender without obvious deformity. No CVA tenderness. NEUROLOGICAL: Awake and alert. Motor and sensory grossly within normal limits. Five out of 5 muscle strength in all muscle groups. Normal speech. Data Data Vital Signs Reviewed: Yes Orders Vital Signs (Adult) .ON ADMISSION (10/25/16 11:24) ^ Labor Status (10/25/16 11:24) Urinalysis - C+S If Indicated (10/25/16 11:24) ^ Non Stress Test (10/25/16 11:24) ^ Hydration (10/25/16 11:24) Acetaminophen (Tylenol) (10/25/16 11:30) MDM Plan Patient is a 31-year-old at 33 weeks and 5 days who presents with abdominal pain since last night. Patient gets her care with Dr. Romo. She describes the pain as being located in this bilateral suprapubic and pelvic areas and feels like pressure, not like contractions. 1. Abdominal pain - most likely round ligament pain or musculoskeletal pain given that she is category 1 heart tracing, long thick and closed cervical exam, not jason on tocometry Monitor vital signs Monitor labor status Monitor heart tracing Encourage by mouth hydration Tylenol by mouth 1 Urine dipstick Patient discussed with Dr. Romo Diagnosis Diagnosis: Primary Impression: Abdominal pain Additional Impression: Ruled Out: labor Disposition: 01 DISCHARGE HOME Condition: Good Anuel Gordon MD R1 Oct 25, 2016 12:00
== END 2016-10-25 12:38 | disposition home or self-care (01) ==
LOC: HOBED 10:38
DX: O26.893 Other specified pregnancy related conditions, third trimester (principal); R10.9 Unspecified abdominal pain; O12.03 Gestational edema, third trimester; O21.9 Vomiting of pregnancy, unspecified; Z3A.33 33 weeks gestation of pregnancy
CPT/HCPCS: 59025

== ENCOUNTER 2016-12-05 10:54 | Inpatient (IN) | payer OTHER ==
[2016-12-05] VITALS (20 sets, daily range): BP systolic 112–145; BP diastolic 61–84; PULSE 69–94; RESP 16–18; TEMP 98–98.3
[2016-12-05] MEDS ORDERED: LACTATED RINGER'S 1000 ML INJ 1,000 ML IV PRN (11:26)
[2016-12-05] MEDS ORDERED: CALCIUM GLUCONATE 10% 1 GM/10 ML VIAL IV PUSH PRN (11:30)
[2016-12-05] MEDS ORDERED: CITRIC ACID-SODIUM CITRATE LIQ 30 ML UDC PO SCH (11:30)
[2016-12-05] MEDS ORDERED: LIDOCAINE HCL 1% 50 ML VIAL I-DERMAL PRN (11:30)
[2016-12-05] MEDS ORDERED: LIDOCAINE HCL 1% 50 ML VIAL INFIL PRN (11:30)
[2016-12-05] MEDS ORDERED: SODIUM CHLORIDE 0.9% FLUSH 10 ML FLUSH IV FLUSH PRN (11:30)
[2016-12-05] MEDS ORDERED: SODIUM CHLORID 0.9% 500 ML INJ 500 ML IV PRN (11:30)
[2016-12-05] MEDS ORDERED: MINERAL OIL 10 ML VIAL TOPICAL PRN (11:30)
[2016-12-05] MEDS ORDERED: SODIUM CHLOR 0.9% 1000 ML INJ 1,000 ML IV PRN (11:46)
--- NOTE | 2016-12-05 12:05 | MH ---
cc: [facility]DA [facility]RE[facility] DATE OF ADMISSION: 12/05/2016 INDICATION FOR DELIVERY 38 and 1/7 weeks with elevated blood pressure, edema and trace proteinuria consistent with preeclampsia not severe. HISTORY OF PRESENT CONDITION The patient is a 31-year-old single black female 4, para 3, with LMP in January 2016 and EDC by late ultrasound December 18 2016. By an earlier ultrasound at the detention she is due December 06, 2016, which would make her 40 weeks. She has been in correction since the end of May due to some felonies. They are not drug related. She has a history of the use of flakka but that was over 6 months ago. 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 She is hepatitis C negative and she has never used IV drugs. She would like to have a tubal ligation or a ParaGard and would definitely like to have a vaginal delivery. Her 2016 delivery was a primary section after two vaginal deliveries for distress. There is a question of whether she is Rh sensitized but she had received RhoGAM at 19 weeks for an undetermined reason and we cannot identify that she has active RhoGAM antibodies on numerous testing. That particular baby was delivered by at [facility] and had a transfusion, the one prior to this. She would like to do a trial of labor for this baby. Her weight at 19 weeks when she first came in was 185, now 234. She has been normotensive throughout the entire with blood pressures in the 110s/60s, today 140s/90s. Her weight gain has been 50 pounds but she has gained 6 pounds in the last week. She has trace to 1+ protein on a dip of the urine. She has some nausea but no headaches or vomiting, no right upper quadrant tenderness. Her deep tendon reflexes are normal. She does not appear overly edematous. Her blood type is A-negative with a positive antibody screen. Her hemoglobin was 10.1. She is immune to Gabonese measles and chickenpox. Her cultures were all negative. Sickle cell is negative. Her Glucola was 110. It does appear that she is hepatitis B exposed in the past. Her surface antibody was positive with a titer of 165 but we do not have surface antigen positive. Her group-B strep was negative. PHYSICAL EXAMINATION GENERAL: She is above ideal body weight. She is in no acute distress but anxious about pending delivery. She is complaining of mild nausea and anxiety. NECK: No thyroid enlargement. LUNGS: Clear. HEART: Regular. BREASTS: The breast exam was reassuring. ABDOMEN: The fundus is term. PELVIC: The cervix is still fairly thick, 1 cm. The is at a -2 position. She has no CVA tenderness. Estimated weight is about 7.5 pounds. Pelvis is clinically adequate and proven to 8 pounds. EXTREMITIES: The extremities are as described in the history of present illness. IMPRESSION AND PLAN 38+ week intrauterine in a multipara who has had two natural deliveries and one for distress and Rh sensitization. This was monitored closely and no evidence of erythroblastosis was seen throughout the . At this point she has mild hypertension and with her other medical comorbidities it was felt appropriate to bring her in and begin low dose Pitocin since Cytotec is contraindicated with her history of prior section. The risks, benefits, expectations and alternatives have been discussed in detail. We have specifically reviewed trial of labor after versus repeat and tubal, and she desires a trial of labor. She is at the hospital now and we will begin. Linda Streeter MD PPC/BT /11:31 AM /11:39 AM
[2016-12-05] MEDS ORDERED: OXYTOCIN 30 UNITS-500ML PREMIX 500 ML IV ONE (12:30)
[2016-12-05 12:55] LABS: AUTOMATED NEUTROPHIL # 4.2 TH/MM3 (1.8-7.7); BASOPHIL % 0.2 % (0.0-2.0); EOSINOPHIL # 0.2 TH/MM3 (0-0.4); EOSINOPHIL % 2.8 % (0.0-4.0); HEMATOCRIT 33.6 % (35.0-46.0); HEMO FLAGS DIFF FINAL; LYMPH % 25.6 % (9.0-44.0); LYMPHOCYTE # 1.9 TH/MM3 (1.0-4.8); MEAN CELL VOLUME 95.1 FL (80.0-100.0); MEAN CORPUSCULAR HEMOGLOBIN 31.5 PG (27.0-34.0); MEAN CORPUSCULAR HGB CONC 33.1 % (32.0-36.0); MONO % 13.9 % (0.0-8.0); NEUT % 57.5 % (16.0-70.0); PLATELET COUNT 157 TH/MM3 (150-450); RED BLOOD COUNT 3.53 MIL/MM3 (4.00-5.30); RED CELL DISTRIBUTION WIDTH 14.1 % (11.6-17.2); WHITE BLOOD COUNT 7.4 TH/MM3 (4.0-11.0)
[2016-12-05] MEDS ORDERED: OXYTOCIN 30 UNITS-500ML PREMIX 500 ML IV SCH (13:00)
[2016-12-05] MEDS: LACTATED RINGER'S 1000 ML INJ 1,000 ML IV SCH ×3 (13:00→19:26)
[2016-12-05 13:04] LABS: BLOOD, URINE NEG (NEG); COMMENT (UR) CULT NOT INDICATED; CULTURE IF INDICATED CULT NOT INDICATED; GLUCOSE,URINE NEG (NEG); HYALINE CAST, URINE 1 /lpf (RARE); KETONE, URINE NEG (NEG); MUCUS URINE FEW /lpf (OCC); NITRITE,URINE NEG (NEG); SQUAMOUS EPITHELIAL CELL URINE <1 /hpf (0-5); URINE COLOR YELLOW (YELLW/STRAW)
[2016-12-05 15:40] LABS: CHLORIDE 108 MEQ/L (98-107); POTASSIUM 3.8 MEQ/L (3.5-5.1); SODIUM (NA) 139 MEQ/L (136-145)
[2016-12-05 15:44] LABS: ALT (GPT) 20 U/L (10-53)
[2016-12-05 16:12] LABS: AST (GOT) 24 U/L (15-37); GLOMERULAR FILTRATION RATE 177 ML/MIN (>89)
[2016-12-05 16:19] LABS: ANION GAP 12 MEQ/L (5-15); BICARBONATE 19.5 MEQ/L (21.0-32.0); BLOOD UREA NITROGEN 4 MG/DL (7-18)
[2016-12-05 16:27] LABS: ALKALINE PHOSPHATASE 128 U/L (45-117); TOTAL BILIRUBIN ADULT 0.4 MG/DL (0.2-1.0)
--- NOTE | 2016-12-05 19:03 | PD.LABORPN ---
Subjective Subjective comfortable with no UCs No leaking or bleeding did get dinner no JASON Blurred vision, nausea or vomiting no RUQT GFM Objective Vital Signs Vital Signs Date Time Temp Pulse Resp B/P (MAP) Pulse Ox O2 Delivery O2 Flow Rate FiO2 12/05/16 17:48 81 18 128/80 (96) 12/05/16 17:15 18 12/05/16 17:15 79 112/61 (78) 12/05/16 16:15 98.3 12/05/16 16:10 82 18 131/69 (89) 12/05/16 15:22 75 125/68 (87) 12/05/16 15:15 18 12/05/16 15:01 94 130/82 (98) 12/05/16 14:31 70 120/66 (84) 12/05/16 14:13 18 12/05/16 14:00 77 129/78 (95) 12/05/16 13:31 85 124/71 (88) 12/05/16 13:00 79 122/78 (93) 12/05/16 12:50 98.0 83 16 124/73 (90) 12/05/16 12:13 81 119/66 (83) Objective strip category 1 cervix midline, high 1 cm and long Weeks Gestation: 38 Gest Age Assessed Date: Dec 05, 2016 Gest Age Assessed Time: 18:58 Pt started active labor?: No Medical induction of labor?: Yes Medical induction start date: Dec 05, 2016 Medical induction start time: 12:00 Artificial rupture of membrane: No Assessment/Plan Problem List: (1) Previous section ICD Codes: Z98.891 - History of uterine scar from previous surgery (2) Elevated blood pressure affecting in third trimester, antepartum ICD Codes: O13.3 - Gestational [-induced] hypertension without significant proteinuria, third trimester (3) Intrauterine ICD Codes: Z33.1 - state, incidental Status: Acute (4) Substance abuse ICD Codes: F19.10 - Other psychoactive substance abuse, uncomplicated Status: Acute Assessment and Plan reviewing history, Bettina corrected me that section was at [facility] and baby was shipped to [facility] This was last year when I thought it was 2 years reviewed that she likely does not have pre eclampsia based on the evaluation today. However, issues of incarceration, prior section and elevated blood pressures in the office merit continuing toward delivery will continue low dose pitocin and if no change will consider repeat section with BTL Bettina is also considering adoption and wants Jhoana Krause notified. Cherie Romo MD Dec 05, 2016 19:03
[2016-12-05] MEDS ORDERED: ZOLPIDEM TARTRATE 5 MG TAB PO PRN (19:15)
[2016-12-05] MEDS ORDERED: SODIUM CHLORIDE 0.9% FLUSH 10 ML FLUSH IV FLUSH SCH (21:00)
[2016-12-06] VITALS (50 sets, daily range): BP systolic 101–162; BP diastolic 55–99; PULSE 76–128; RESP 16–18; TEMP 97.5–98.8
[2016-12-06] MEDS: LACTATED RINGER'S 1000 ML INJ 1,000 ML IV SCH ×2 (02:20→03:57)
--- NOTE | 2016-12-06 07:27 | PD.LABORPN ---
Subjective Subjective Very uncomfortable difficulty to stay still for monitoring, despite shackled due to contractions good movement Objective Vital Signs Vital Signs Date Time Temp Pulse Resp B/P (MAP) Pulse Ox O2 Delivery O2 Flow Rate FiO2 12/06/16 06:33 80 118/81 (93) 12/06/16 06:32 18 12/06/16 05:46 18 12/06/16 05:46 97.5 12/06/16 05:45 89 127/82 (97) 12/06/16 03:22 18 12/06/16 02:08 98.4 12/06/16 00:35 77 18 120/73 (89) Objective 3/80%--2 BBOW needs arom and IUPC epidural Weeks Gestation: 38 Gest Age Assessed Date: Dec 05, 2016 Gest Age Assessed Time: 18:58 Pt started active labor?: No Medical induction of labor?: Yes Medical induction start date: Dec 05, 2016 Medical induction start time: 12:00 Artificial rupture of membrane: No Assessment/Plan Problem List: (1) Previous section ICD Codes: Z98.891 - History of uterine scar from previous surgery (2) Elevated blood pressure affecting in third trimester, antepartum ICD Codes: O13.3 - Gestational [-induced] hypertension without significant proteinuria, third trimester (3) Intrauterine ICD Codes: Z33.1 - state, incidental Status: Acute (4) Substance abuse ICD Codes: F19.10 - Other psychoactive substance abuse, uncomplicated Status: Acute Assessment and Plan Needs arom needs IUPC epidural GET THE Cherie Jack MD Dec 06, 2016 07:27
[2016-12-06] MEDS ORDERED: ePHEDrine/NS 25 MG/5 ML SYR ONE (07:58)
[2016-12-06] MEDS ORDERED: fentaNYL 2MCG-BUPIV 0.125% INJ 100 ML ONE (07:58)
[2016-12-06] MEDS ORDERED: ePHEDrine/NS 25 MG/5 ML SYR IV PRN (09:30)
[2016-12-06] MEDS ORDERED: fentaNYL 2MCG-BUPIV 0.125% 100 ML EPIDURAL SCH (10:00)
[2016-12-06] MEDS ORDERED: DO NOT ADMINISTER ANTICOAGULANTS PRN (10:00)
[2016-12-06] MEDS ORDERED: NO SYSTEM NARCOTICS PRN (10:00)
--- NOTE | 2016-12-06 12:04 | PD.OB.DELI ---
Weeks gestation: 38 Gest age assessed date: Dec 05, 2016 Gest age assessed time: 18:58 Pt started active labor?: No Medical induction of labor?: Yes Medical induction start date: Dec 05, 2016 Medical induction start time: 12:00 Artificial rupture of membrane: Yes Artificial ROM date: Dec 06, 2016 Artifical ROM time: 07:45 Anesthesia: Epidural Episiotomy: None Vaginal Delivery: Normal, Presentation: Occiput anterior Nuchal Cord: None Delayed cord clamping (45 sec): Yes : Female Delivery date: Dec 06, 2016 Delivery time: 11:30 One Minute : 9 Five Minute : 9 Weight: 7 Placenta: Spontaneous delivery Laceration: No lacerations Estimated blood loss: less than average Additional Information incarcerated and will be going back to [facility] in Cherie Black MD Dec 06, 2016 12:04
--- NOTE | 2016-12-06 12:08 | HHI.DCPOC ---
Discharge Care Plan Report Symptoms to Your Doctor -Temperature above 100.5 degrees -Redness, of incision or excessive or foul smelling drainage -Unusual pain or calf pain -Increased vaginal bleeding -Painful or difficulty urinating -Feelings of extreme sadness or anxiety after 2 weeks Goals to Promote Your Health * To prevent worsening of your condition and complications * To maintain your health at the optimal level Directions to Meet Your Goals Take your medications as prescribed Follow your dietary instruction Follow activity as directed Ensure plenty of rest for recovery Drink fluids for hydration Keep your appointments as scheduled Take your immunizations and boosters as scheduled If your symptoms worsen call your PCP, if no PCP go to Urgent Care Center or Emergency Room Smoking is Dangerous to Your Health. Avoid second hand smoke Call the 24-hour crisis hotline for domestic abuse at Cherie Romo MD Dec 06, 2016 12:07
[2016-12-06] MEDS ORDERED: DOCUSATE SODIUM 50 MG/SENNA 8.6 MG TAB PO PRN (12:15)
[2016-12-06] MEDS ORDERED: ZOLPIDEM TARTRATE 5 MG TAB PO PRN (12:15)
[2016-12-06] MEDS ORDERED: OXYTOCIN 30 UNITS-500ML PREMIX 500 ML IV SCH (12:15)
[2016-12-06] MEDS ORDERED: SODIUM CHLORIDE 0.9% FLUSH 10 ML FLUSH IV FLUSH PRN (12:15)
[2016-12-06] MEDS ORDERED: medroxyPROGESTERone ACETATE SUSP 150 MG/ML SYRINGE IM ONE (12:15)
[2016-12-06] MEDS ORDERED: ONDANSETRON ODT 4 MG TAB PO PRN (12:15)
[2016-12-06] MEDS ORDERED: ALUMINUM/MAGNESIUM/SIMETH 30 ML CUP PO PRN (12:15)
[2016-12-06] MEDS ORDERED: WITCH HAZEL 50%/GLYCERIN 12.5% 40 PAD JAR TOPICAL PRN (12:15)
[2016-12-06] MEDS ORDERED: BENZOCAINE 20% TOPICAL SPRAY 60 ML CAN TOPICAL PRN (12:15)
[2016-12-06] MEDS ORDERED: MEASLES, MUMPS, RUBELLA VACCINE 0.5 ML VIAL SQ ONE (16:00)
[2016-12-06] MEDS ORDERED: DIPHTH/TETANUS/ACEL PERTUSSIS (BOOSTER) 0.5 ML VIAL/PFS IM ONE (16:00)
[2016-12-06] MEDS: ACETAMINOPHEN 325 MG TAB PO PRN ×2 (17:21→22:49)
[2016-12-06] MEDS: IBUPROFEN 600 MG TAB PO PRN ×2 (17:22→23:52)
[2016-12-06] MEDS ORDERED: SODIUM CHLORIDE 0.9% FLUSH 10 ML FLUSH IV FLUSH SCH (21:00)
--- NOTE | 2016-12-07 08:53 | HHI.OB ---
Subjective Post Day: 1 Remarks Doing well with no cuts or tears preparing with adoption team to give daughter up and return to halfway seems at peace with this Objective Vitals/I&O Vital Signs Date Time Temp Pulse Resp B/P (MAP) Pulse Ox O2 Delivery O2 Flow Rate FiO2 12/06/16 20:05 86 12/06/16 19:30 18 121/75 (90) 12/06/16 19:30 98.8 86 12/06/16 14:20 98.5 85 16 126/78 (94) 12/06/16 13:31 100 135/79 (97) 12/06/16 13:04 90 136/78 (97) 12/06/16 12:30 88 121/68 (85) 12/06/16 12:16 128 101/55 (70) 12/06/16 12:00 95 122/73 (89) 12/06/16 11:45 89 124/70 (88) 12/06/16 11:35 98.2 12/06/16 11:35 18 12/06/16 11:31 86 124/66 (85) 12/06/16 11:29 90 116/70 (85) 12/06/16 10:55 93 12/06/16 10:50 82 12/06/16 10:45 87 133/80 (97) 12/06/16 10:45 80 12/06/16 10:40 90 12/06/16 10:35 97 12/06/16 10:30 87 116/79 (91) 12/06/16 10:25 88 12/06/16 10:20 87 12/06/16 10:15 84 12/06/16 10:15 89 118/77 (91) 12/06/16 09:35 88 12/06/16 09:31 80 119/59 (79) 12/06/16 09:30 84 12/06/16 09:25 87 12/06/16 09:20 78 12/06/16 09:15 86 12/06/16 09:15 98.2 12/06/16 09:15 81 119/62 (81) 12/06/16 09:10 86 12/06/16 09:05 79 12/06/16 09:00 79 12/06/16 09:00 83 121/70 (87) 12/06/16 08:55 76 12/06/16 08:55 82 18 126/71 (89) Objective Remarks GENERAL: Well-nourished, well-developed patient. CARDIOVASCULAR: Regular rate and rhythm without murmurs, gallops, or rubs. RESPIRATORY: Breath sounds equal bilaterally. No accessory muscle use. ABDOMEN/GI: Abdomen soft, non-tender. Fundus: Firm, non-tender at umbilicus. GENITOURINARY: Light to moderate bleeding. EXTREMITIES: No cyanosis or edema, non-tender, without signs of DVT. Medications and IVs Current Medications Medications (Trade) Dose Ordered Sig/Ren Route Start Time Stop Time Status Last Admin Lactated Ringer's 1,000 ml @ 125 mls/hr Q8H IV 12/05/16 11:26 12/06/16 03:57 Lactated Ringer's 1,000 ml @ 3,000 mls/hr Q20M PRN IV 12/05/16 11:26 Sodium Chloride 1,000 ml @ 100 mls/hr Q10H PRN IV 12/05/16 11:46 (Xylocaine 1% Inj (50 ml)) 0.1 ml UNSCH X1 PRN I-DERMAL 12/05/16 11:30 12/08/16 11:29 (Bicitra Liq) 30 ml ORCHID WORKER PO 12/05/16 11:30 12/09/16 11:29 (Xylocaine 1% Inj (50 ml)) 10 ml UNSCH X1 PRN INFIL 12/05/16 11:30 12/07/16 11:29 (Muri-Lube Oil) 10 ml UNSCH PRN TOPICAL 12/05/16 11:30 Lactated Ringer's 1,000 ml @ 75 mls/hr [id number] IV 12/05/16 13:00 (NS Flush) 2 ml UNSCH PRN IV FLUSH 12/05/16 11:30 (NS Flush) 2 ml BID IV FLUSH 12/05/16 21:00 (Calcium Gluconate Inj) 1 gm UNSCH PRN IV PUSH 12/05/16 11:30 Miscellaneous Information No systemic narcotics to be given except... UNSCH PRN .XX 12/06/16 10:00 12/07/16 09:59 Miscellaneous Information DO NOT ADMINISTER ANY ANTICOAGUL... UNSCH PRN .XX 12/06/16 10:00 12/07/16 09:59 Fentanyl/ Bupivacaine HCl 100 ml @ 0 mls/hr TITRATE EPIDURAL 12/06/16 10:00 (ePHEDrine/NS 25 MG/5 ML SYR) 10 mg UNSCH PRN IV 12/06/16 09:30 12/07/16 09:29 (Tylenol) 650 mg Q4H PRN PO 12/06/16 12:15 12/06/16 22:49 (Motrin) 600 mg Q6H PRN PO 12/06/16 12:15 12/06/16 23:52 (Americaine 20% Top Spr) 1 spray Q4H PRN TOPICAL 12/06/16 12:15 (Tucks Pads) 1 applic QID PRN TOPICAL 12/06/16 12:15 (Juliane-Colace) 2 tab Q12H PRN PO 12/06/16 12:15 (Ambien) 5 mg HS PRN PO 12/06/16 12:15 (Mag-Al Plus Susp Liq) 15 ml Q8H PRN PO 12/06/16 12:15 (Zofran Odt) 4 mg Q6H PRN PO 12/06/16 12:15 Assessment/Plan Problem List: (1) Previous section ICD Codes: Z98.891 - History of uterine scar from previous surgery (2) Elevated blood pressure affecting in third trimester, antepartum ICD Codes: O13.3 - Gestational [-induced] hypertension without significant proteinuria, third trimester (3) Intrauterine ICD Codes: Z33.1 - state, incidental Status: Acute (4) Substance abuse ICD Codes: F19.10 - Other psychoactive substance abuse, uncomplicated Status: Acute Assessment and Plan can be discharged today MUST return to my office for IUD regardless of status with incarceration does NOT want to conceive again. RTO 2 weeks Cherie Romo MD Dec 07, 2016 08:53
[2016-12-07 09:31] VITALS: BP 104/70; PULSE 79; RESP 18; TEMP 98.1
[2016-12-07] MEDS: ACETAMINOPHEN 325 MG TAB PO PRN (09:31)
[2016-12-07] MEDS: IBUPROFEN 600 MG TAB PO PRN (09:31)
[2016-12-10 08:01] LABS: BATH SALTS (MDPV) UR NEG (NEG); ECSTASY (MDMA) UR NEG (NEG); GABAPENTIN UR NEG (NEG); HEROIN (6-ACETYLMORPHINE) UR NEG (NEG); HYDROMORPHONE U NEG (NEG); K2 SPICE UR NEG (NEG); OBMETHADONE UR NEG (NEG); PHENCYCLIDINE URINE NEG (NEG)
== END 2016-12-07 13:16 | DRG 775 ==
LOC: H2EB 10:54 → H2EA 10:58 → H1EA 12-06 13:51
PROVIDERS: ADMIT Obstetrics & Gynecology; ATTEND Obstetrics & Gynecology
PROC: 3E033VJ Introduction of Other Hormone into Peripheral Vein, Percutaneous Approach (ICD-10-PCS; 2016-12-05)
PROC: 10E0XZZ Delivery of Products of Conception, External Approach (ICD-10-PCS; principal; 2016-12-06)
PROC: 10907ZC Drainage of Amniotic Fluid, Therapeutic from Products of Conception, Via Natural or Artificial Opening (ICD-10-PCS; 2016-12-06)
DX: O13.4 Gestational [pregnancy-induced] hypertension without significant proteinuria, complicating childbirth (principal); Z37.0 Single live birth; Z3A.38 38 weeks gestation of pregnancy; O34.211 Maternal care for low transverse scar from previous cesarean delivery
CPT/HCPCS: 59025; 80053; 80307; 81001; 84550; 85025; G0481; J2590; J3010; J7120